=== PATIENT | male | born 1965 | race Caucasian/White ===

== ENCOUNTER 2016-11-07 16:47 | Emergency (ER) | payer SELFPAY ==
[~2016-11-07] VITALS: Ht 182.9 cm; Wt 104.0 kg
[~2016-11-07 16:47] MED LIST: CEPH-460 PO; CLIN1CAP5 PO; GABA600T PO; OXYC15TA PO; TEKT150T PO; TERA5CAP3 PO
[2016-11-07 16:56] VITALS: BP 127/62; PULSE 74; RESP 16; TEMP 98.7; O2SAT 97
--- NOTE | 2016-11-07 17:28 | PD ---
HPI Chief Complaint: laceration Time Seen by Provider: 17:20 Travel History International Travel<30 days: No Contact w/Intl Traveler<30days: No Traveled to known affect area: No History of Present Illness HPI 50-year-old male with history of multiple sclerosis presents for evaluation of a laceration to the left thumb. It was sustained prior to arrival when he fell while cleaning his pool pump. He reports that in order to keep from falling further he grabbed onto a metal hose clamp and the clamp was sharp and cut his finger. He now has pain at the site of the laceration. Pain is an aching pain which is worse with palpation. Denies any numbness, tingling, or range of motion limitation. His last tetanus vaccination was in 2013. No other complaints at this time. PFSH Past Medical History Arthritis: Yes Blood Disorders: No Cancer: No Cardiac Catheterization: Yes (no stents) Cardiovascular Problems: Yes (HYPOTENSIVE AT TIMES) High Cholesterol: Yes Chest Pain: Yes (08/05/10) Diminished Hearing: No Endocrine: No Gastrointestinal Disorders: Yes Genitourinary: Yes Immune Disorder: No Kidney Stones: Yes (2000) Musculoskeletal: Yes Neurologic: Yes (MS) Psychiatric: No Reproductive: No Respiratory: No Immunizations Current: Yes Migraines: Yes (WEEKLY) Past Surgical History Other Surgery: No Social History Alcohol Use: No Tobacco Use: No Substance Use: No (24 yr ago) Allergies-Medications (Allergen,Severity, Reaction): Coded Allergies: Sulfa (Sulfonamide Antibiotics) (Unverified Allergy, Severe, RASH, 09/22/16 ) Reported Meds & Prescriptions Reported Meds & Active Scripts Active Keflex (Cephalexin) 500 Mg Cap 500 Mg PO Q6H 10 Days Clindamycin (Clindamycin HCl) 150 Mg Cap 2 Tab PO Q6H 10 Days Reported Terazosin (Terazosin HCl) 5 Mg Cap 5 Mg PO HS Oxycodone (Oxycodone HCl) 15 Mg Tab 15 Mg PO Q6HR Gabapentin 600 Mg Tab 600 Mg PO TID Tekturna (Aliskiren) 150 Mg Tab 240 Mg PO BID Review of Systems Musculoskeletal: No: Limited ROM Skin: Positive Other (positive for laceration, pain) Physical Exam Narrative GENERAL: Well-developed well-nourished male in no acute distress SKIN: Warm and dry. 1.5 cm linear laceration to the volar aspect of the left thumb. CARDIOVASCULAR: Regular rate and rhythm. No murmur appreciated. RESPIRATORY: No accessory muscle use. Clear to auscultation. Breath sounds equal bilaterally. GASTROINTESTINAL: Abdomen soft, non-tender, nondistended. Hepatic and splenic margins not palpable. MUSCULOSKELETAL: No obvious deformities. Skin as noted above with no obvious bony disturbance. The patient maintains full flexion and extension against resistance at the left thumb MCP and PI joints. Distal sensation is preserved. Capillary refill is less than 2 seconds in the affected thumb. NEUROLOGICAL: Awake and alert. No obvious cranial nerve deficits. Motor grossly within normal limits. Normal speech. Data Data Last Documented VS Vital Signs Date Time Temp Pulse Resp B/P (MAP) Pulse Ox O2 Delivery O2 Flow Rate FiO2 11/07/16 16:56 98.7 74 16 127/62 (83) 97 Room Air Orders Orders Lidocaine 1% Inj (50 Ml) (Xylocaine 1% I (11/07/16 17:30) Support Splint (11/07/16 17:52) MDM Medical Decision Making Medical Screen Exam Complete: Yes Emergency Medical Condition: Yes Medical Record Reviewed: Yes Differential Diagnosis Finger laceration, flexor tendon injury, neurovascular injury, open fracture Narrative Course The patient presents with laceration to left thumb with no evidence of neurovascular, flexor tendon or bony involvement. The laceration was repaired with sutures, he verbally consented. He was discharged with a finger splint to minimize risk of wound dehiscence.. Procedures Procedure Narrative LACERATION LOCATION: Left thumb LENGTH: 1.5 cm NUMBER OF STITCHES/DAYANARA: 5 REPAIR: The area of the laceration was prepped with Betadine and sterilely draped. The laceration was infiltrated with 1% lidocaine digital block. The wound was copiously irrigated and explored without evidence of foreign body, tendon injury or neurovascular injury. The wound was closed using 5-0 PROLENE simple interrupted. This was a single layer repair. A sterile dressing was applied. The patient was advised to keep the dressing clean and dry. Patient tolerated the procedure well. Diagnosis Primary Impression: Thumb laceration Qualified Codes: S61.012A - Laceration without foreign body of left thumb without damage to nail, initial encounter Additional Instructions: Wash the wound gel with soap and water and apply antibiotic cream, clean bandages, splint daily. Minimize movement of left thumb. Return in 12-14 days for suture removal. Med/Other Pt SpecificInfo: Wound Care Disposition: 01 DISCHARGE HOME Condition: Stable Winston Nayak Nov 07, 2016 17:28
[2016-11-07] MEDS ORDERED: LIDOCAINE HCL 1% 50 ML VIAL INFIL ONE (17:30)
== END 2016-11-07 18:14 | disposition home or self-care (01) ==
LOC: PHED 16:47 → PHEFT 18:14
DX: S61.012A Laceration without foreign body of left thumb without damage to nail, initial encounter (principal); E78.00 Pure hypercholesterolemia, unspecified; G35 Multiple sclerosis; Z87.39 Personal history of other diseases of the musculoskeletal system and connective tissue; Z86.79 Personal history of other diseases of the circulatory system; Z87.19 Personal history of other diseases of the digestive system; Z87.448 Personal history of other diseases of urinary system; Z86.69 Personal history of other diseases of the nervous system and sense organs; W18.39XA Other fall on same level, initial encounter; W45.8XXA Other foreign body or object entering through skin, initial encounter
CPT/HCPCS: 12001

== ENCOUNTER 2017-01-13 16:12 | Inpatient (IN) | payer SELFPAY ==
[~2017-01-13] VITALS: Ht 180.3 cm; Wt 106.7 kg
[~2017-01-13 16:12] MED LIST changes: +CLIN150C14 PO; -CLIN1CAP5 PO
--- NOTE | 2017-01-13 16:24 | PD ---
HPI Chief Complaint: sob Time Seen by Provider: 16:18 Travel History International Travel<30 days: No Contact w/Intl Traveler<30days: No Traveled to known affect area: No History of Present Illness HPI patient had 3 days of cough, nonprod, runny nose which seemed to be improving...however patient is also experiencing weakness of ruth LE and UE similar to previous MS relapses. patient also c/o sob, chest pressure/ as well chart and rn notes reviewed no pcp, only sees dr dwyer (neurologist) all: sulfa pmhx: kidney stones, multiple sclerosis pshx: PFSH Past Medical History Arthritis: Yes Blood Disorders: No Cancer: No Cardiac Catheterization: Yes (no stents) Cardiovascular Problems: Yes (HYPOTENSIVE AT TIMES) High Cholesterol: Yes Chest Pain: Yes (08/05/10) Diminished Hearing: No Endocrine: No Gastrointestinal Disorders: No Genitourinary: Yes Immune Disorder: No Implanted Vascular Access Dvce: No Kidney Stones: Yes (2000) Musculoskeletal: Yes Neurologic: Yes (MS) Psychiatric: No Reproductive: No Respiratory: No Immunizations Current: Yes Migraines: Yes (WEEKLY) Past Surgical History Other Surgery: No Social History Alcohol Use: No Tobacco Use: No Substance Use: No (24 yr ago) Allergies-Medications (Allergen,Severity, Reaction): Coded Allergies: Sulfa (Sulfonamide Antibiotics) (Unverified Allergy, Severe, RASH, 01/13/17 ) Reported Meds & Prescriptions Reported Meds & Active Scripts Active Reported [terafludamide] Arzerra (Ofatumumab) 100 Mg/5 Ml Con 100 Mg IV Terazosin (Terazosin HCl) 5 Mg Cap 5 Mg PO HS Oxycodone (Oxycodone HCl) 15 Mg Tab 30 Mg PO Q6HR Review of Systems Except as stated in HPI: all other systems reviewed are Neg General / Constitutional: No: Fever Eyes: No: Visual changes HENT: No: Headaches Cardiovascular: Positive: Chest Pain or Discomfort Respiratory: Positive: Shortness of Breath Gastrointestinal: No: Abdominal Pain Genitourinary: No: Dysuria Musculoskeletal: No: Pain Skin: No Rash Neurologic: No: Weakness Psychiatric: No: Depression Endocrine: No: Polydipsia Hematologic/Lymphatic: No: Easy Bruising Physical Exam Narrative GENERAL: SKIN: Warm and dry. HEAD: Atraumatic. Normocephalic. EYES: Pupils equal and round. No scleral icterus. No injection or drainage. ENT: No nasal bleeding or discharge. Mucous membranes pink and moist. NECK: Trachea midline. No JVD. CARDIOVASCULAR: Regular rate and rhythm. RESPIRATORY: No accessory muscle use. ronchi to auscultation. Breath sounds equal bilaterally. GASTROINTESTINAL: Abdomen soft, non-tender, nondistended. Hepatic and splenic margins not palpable. MUSCULOSKELETAL: Extremities without clubbing, cyanosis, or edema. No obvious deformities. NEUROLOGICAL: Awake and alert. No obvious cranial nerve deficits. Motor grossly within normal limits. 3 out of 5 muscle strength in the arms and legs. Normal speech. PSYCHIATRIC: Appropriate mood and affect; insight and judgment normal. Data Data Last Documented VS Vital Signs Date Time Temp Pulse Resp B/P (MAP) Pulse Ox O2 Delivery O2 Flow Rate FiO2 01/13/17 16:50 97 Room Air 01/13/17 16:35 98.4 110 22 110/89 (96) Orders Orders Electrocardiogram (01/13/17 16:18) B-Type Natriuretic Peptide (01/13/17 16:18) Ckmb (Isoenzyme) Profile (01/13/17 16:18) Complete Blood Count With Diff (01/13/17 16:18) Comprehensive Metabolic Panel (01/13/17 16:18) Prothrombin Time / Inr (Pt) (01/13/17 16:18) Act Partial Throm Time (Ptt) (01/13/17 16:18) Troponin I (01/13/17 16:18) Lipase (01/13/17 16:18) Chest, Single Ap (01/13/17 16:18) Ecg Monitoring (01/13/17 16:18) Bilateral Bp Monitoring (01/13/17 16:18) Iv Access Insert/Monitor (01/13/17 16:18) Oximetry (01/13/17 16:18) Oxygen Administration (01/13/17 16:18) Sodium Chloride 0.9% Flush (Ns Flush) (01/13/17 16:30) Influenzae A/B Antigen (01/13/17 16:37) Methylprednisolone So Succ Inj (Solumedr (01/13/17 16:45) Hydromorphone Pf Inj (Dilaudid Pf Inj) (01/13/17 17:30) Admit To Inpatient (01/13/17 ) Inpatient Certification (01/13/17 ) Ondansetron Inj (Zofran Inj) (01/13/17 17:45) Admit Order (Ed Use Only) (01/13/17 17:44) Labs Laboratory Tests Test 01/13/17 16:45 White Blood Count 7.0 TH/MM3 Red Blood Count 4.47 MIL/MM3 Hemoglobin 13.1 GM/DL Hematocrit 39.5 % Mean Corpuscular Volume 88.3 FL Mean Corpuscular Hemoglobin 29.3 PG Mean Corpuscular Hemoglobin Concent 33.2 % Red Cell Distribution Width 12.1 % Platelet Count 240 TH/MM3 Mean Platelet Volume 7.4 FL Neutrophils (%) (Auto) 81.8 % Lymphocytes (%) (Auto) 6.9 % Monocytes (%) (Auto) 6.0 % Eosinophils (%) (Auto) 4.1 % Basophils (%) (Auto) 1.2 % Neutrophils # (Auto) 5.7 TH/MM3 Lymphocytes # (Auto) 0.5 TH/MM3 Monocytes # (Auto) 0.4 TH/MM3 Eosinophils # (Auto) 0.3 TH/MM3 Basophils # (Auto) 0.1 TH/MM3 CBC Comment DIFF FINAL Differential Comment Prothrombin Time 10.0 SEC Prothromb Time International Ratio 1.0 RATIO Activated Partial Thromboplast Time 28.5 SEC Blood Urea Nitrogen 13 MG/DL Creatinine 0.59 MG/DL Random Glucose 92 MG/DL Total Protein 6.4 GM/DL Albumin 3.2 GM/DL Calcium Level 7.3 MG/DL Alkaline Phosphatase 34 U/L Aspartate Amino Transf (AST/SGOT) 12 U/L Alanine Aminotransferase (ALT/SGPT) 25 U/L Total Bilirubin 0.4 MG/DL Sodium Level 142 MEQ/L Potassium Level 3.3 MEQ/L Chloride Level 109 MEQ/L Carbon Dioxide Level 24.4 MEQ/L Anion Gap 9 MEQ/L Estimat Glomerular Filtration Rate 144 ML/MIN Protein Corrected Calcium 7.7 MG/DL Total Creatine Kinase 90 U/L Troponin I LESS THAN 0.02 NG/ML B-Type Natriuretic Peptide 24 PG/ML Lipase 84 U/L [facility] Medical Decision Making Medical Screen Exam Complete: Yes Emergency Medical Condition: Yes Medical Record Reviewed: Yes Interpretation(s) sinus tach, 103, baseline motion artifact, normal intervals and no stemi pattern Differential Diagnosis PNA V UTI V ELECTROLYTE ABNL V MS EXACERBATION Narrative Course PT FOUND NOT TO HAVE PNA, UTI OR ELECTROLYTE ABNORMALITIES...SO PATIENT IS MOST LIKELY HAVE AN MS RELAPSE Diagnosis Primary Impression: Acute relapsing multiple sclerosis Admitting Information Admitting Physician Requests: Observation Scripts Methylprednisolone Sod Succinate Inj (Solu-Medrol Inj) 125 Mg/2 Ml Inj 1000 MG IV ONCE for multiple sclerosis, #1 VIAL 0 Refills Prov: Constantin Temple 01/15/17 Cholecalciferol (Vitamin D3) 5,000 Unit Cap 5000 UNITS PO DAILY for vitamin D deficiency for 30 Days, CAP Prov: Constantin Temple 01/15/17 Tito Hayes MD Jan 13, 2017 16:24
[2017-01-13] MEDS ORDERED: SODIUM CHLORIDE 0.9% FLUSH 10 ML FLUSH IVF PRN (16:30)
[2017-01-13 16:35] VITALS: BP 110/89; PULSE 110; RESP 22; TEMP 98.4; O2SAT 98
[2017-01-13 16:45] VITALS: O2SAT 97
[2017-01-13] MEDS ORDERED: methylPREDNISolone SOD SUCC 125 MG/2 ML VIAL IV PUSH ONE ×2 (16:45→20:00)
[2017-01-13 17:01] LABS: AUTOMATED NEUTROPHIL # 5.7 TH/MM3 (1.8-7.7); BASOPHIL # 0.1 TH/MM3 (0-0.2); BASOPHIL % 1.2 % (0.0-2.0); EOSINOPHIL # 0.3 TH/MM3 (0-0.4); EOSINOPHIL % 4.1 % (0.0-4.0); HEMATOCRIT 39.5 % (39.0-51.0); HEMO FLAGS DIFF FINAL; LYMPH % 6.9 % (9.0-44.0); LYMPHOCYTE # 0.5 TH/MM3 (1.0-4.8); MEAN CELL VOLUME 88.3 FL (80.0-100.0); MEAN CORPUSCULAR HEMOGLOBIN 29.3 PG (27.0-34.0); MEAN CORPUSCULAR HGB CONC 33.2 % (32.0-36.0); NEUT % 81.8 % (16.0-70.0); PLATELET COUNT 240 TH/MM3 (150-450); RED BLOOD COUNT 4.47 MIL/MM3 (4.50-5.90); RED CELL DISTRIBUTION WIDTH 12.1 % (11.6-17.2)
[2017-01-13 17:09] LABS: CHLORIDE 109 MEQ/L (98-107); POTASSIUM 3.3 MEQ/L (3.5-5.1); SODIUM (NA) 142 MEQ/L (136-145)
[2017-01-13 17:13] LABS: APTT (PATIENT) 28.5 SEC (24.3-30.1)
--- NOTE | 2017-01-13 17:17 | RADRPT ---
EXAM DATE/TIME: 01/13/2017 16:49 [place] COMPARISON: No previous studies available for comparison. INDICATIONS : Chest pressure and shortness of breath. MEDICAL HISTORY : Multiple sclerosis. SURGICAL HISTORY : None. ENCOUNTER: Initial ACUITY: 1 day PAIN SCORE: 7/10 LOCATION: chest FINDINGS: A single view of the chest demonstrates the lungs to be symmetrically, but under aerated without evid ence of mass, infiltrate or effusion. The cardiomediastinal contours are unremarkable. Osseous stru ctures are intact with some degenerative spurring of the dorsal spine. CONCLUSION: Hypoinflation with no acute cardiopulmonary process. Duane Tyler MD on January 13, 2017 at 17:15 Board Certified Radiologist. This report was verified electronically.
[2017-01-13 17:20] LABS: ALKALINE PHOSPHATASE 34 U/L (45-117); ALT (GPT) 25 U/L (12-78); ANION GAP 9 MEQ/L (5-15); AST (GOT) 12 U/L (15-37); BICARBONATE 24.4 MEQ/L (21.0-32.0); BLOOD UREA NITROGEN 13 MG/DL (7-18); CALCIUM-PROTEIN CORRECTED 7.7 MG/DL (8.5-10.1); GLOMERULAR FILTRATION RATE 144 ML/MIN (>89); TOTAL BILIRUBIN ADULT 0.4 MG/DL (0.2-1.0)
[2017-01-13 17:21] LABS: CREATINE KINASE 90 U/L (39-308)
[2017-01-13] MEDS ORDERED: [UNRECOGNIZED DRUG - CODE] IV (17:21)
[2017-01-13] MEDS ORDERED: [UNRECOGNIZED DRUG - OTHER] (17:21)
[2017-01-13] MEDS ORDERED: HYDROmorphone HCL PF 1 MG/ML VIAL IV PUSH ONE (17:30)
[2017-01-13] MEDS ORDERED: ONDANSETRON HCL 4 MG/2 ML VIAL IV PUSH ONE (17:45)
[2017-01-13 17:56] VITALS: BP_SYST 124; BP_SYST 134; BP_DIAS 73
[2017-01-13 18:03] VITALS: BP 124/73; PULSE 103; RESP 19; O2SAT 97
--- NOTE | 2017-01-13 19:23 | HHI.HP ---
[facility] No Primary Care Physician Admission Diagnosis MULTIP SCLEROSIS RELAPSE, Diagnoses: Chief Complaint: weakness Travel History International Travel<30 Days: No Contact w/Intl Traveler <30 Da: No Traveled to Known Affected Are: No History of Present Illness 51-year-old white male being admitted for possible multiple sclerosis exacerbation versus drug reaction resulting in generalized weakness and inability to walk. Patient states he was in his usual state of health until 2 days ago when he began feeling generalized weakness, namely he had difficulty sitting up in being able to get up from bed and being able to walk. He states that she went to his neurologist office today and got a experimental shot of medication for multiple sclerosis and sometime afterwards his weakness symptoms got even worse and then he decided to come to the emergency room. He had simultaneously viral URI-like symptoms including nasal congestion and coughing. Denies any fevers chills, nausea vomiting or headaches. Patient states the last time he was actually hospitalized for an MS relapse was a couple of years ago. In the emergency room he was given 125 mg of IV Solu-Medrol Review of Systems Except as stated in HPI: all other systems reviewed are Neg Past Family Social History Past Medical History Multiple sclerosis Past Surgical History None Allergies: Coded Allergies: Sulfa (Sulfonamide Antibiotics) (Unverified Allergy, Severe, RASH, 01/13/17 ) Family History Multiple sclerosis Social History Ex-smoker by many decades, denies alcohol or illicit drug use Physical Exam Vital Signs Vital Signs Date Time Temp Pulse Resp B/P (MAP) Pulse Ox O2 Delivery O2 Flow Rate FiO2 01/13/17 19:04 01/13/17 18:40 19 01/13/17 18:03 103 19 124/73 (90) 97 Room Air 01/13/17 17:56 134/73 (93) 124/73 (90) 01/13/17 16:50 97 Room Air 01/13/17 16:45 97 Room Air 01/13/17 16:45 97 Room Air 01/13/17 16:35 98.4 110 22 110/89 (96) 98 Physical Exam VS: Afebrile GENERAL: Well-nourished middle-aged white male, no acute distress SKIN: Warm and dry. EYES: Pupils equal and round. No scleral icterus. No injection or drainage. ENT: No nasal bleeding or discharge. Mucous membranes pink and moist. CARDIOVASCULAR: Regular rate and rhythm. no murmurs RESPIRATORY: No accessory muscle use. Clear to auscultation. Breath sounds equal bilaterally. GASTROINTESTINAL: Abdomen soft, non-tender, nondistended. Hepatic and splenic margins not palpable. Extremities: No clubbing, cyanosis, or edema. No obvious deformities. MUSCULOSKELETAL: Extremities without clubbing, cyanosis, or edema. No obvious deformities. 4/5 BL upper ext strength with 2/5 BL LE strength NEUROLOGICAL: Awake and alert. No obvious cranial nerve deficits. No facial droop nor slurred speech noted. Diminished patellar reflexes bilaterally PSYCHIATRIC: Appropriate mood and affect; insight and judgment normal. Laboratory Laboratory Tests Test 01/13/17 16:45 White Blood Count 7.0 Red Blood Count 4.47 Hemoglobin 13.1 Hematocrit 39.5 Mean Corpuscular Volume 88.3 Mean Corpuscular Hemoglobin 29.3 Mean Corpuscular Hemoglobin Concent 33.2 Red Cell Distribution Width 12.1 Platelet Count 240 Mean Platelet Volume 7.4 Neutrophils (%) (Auto) 81.8 Lymphocytes (%) (Auto) 6.9 Monocytes (%) (Auto) 6.0 Eosinophils (%) (Auto) 4.1 Basophils (%) (Auto) 1.2 Neutrophils # (Auto) 5.7 Lymphocytes # (Auto) 0.5 Monocytes # (Auto) 0.4 Eosinophils # (Auto) 0.3 Basophils # (Auto) 0.1 CBC Comment DIFF FINAL Differential Comment Prothrombin Time 10.0 Prothromb Time International Ratio 1.0 Activated Partial Thromboplast Time 28.5 Blood Urea Nitrogen 13 Creatinine 0.59 Random Glucose 92 Total Protein 6.4 Albumin 3.2 Calcium Level 7.3 Alkaline Phosphatase 34 Aspartate Amino Transf (AST/SGOT) 12 Alanine Aminotransferase (ALT/SGPT) 25 Total Bilirubin 0.4 Sodium Level 142 Potassium Level 3.3 Chloride Level 109 Carbon Dioxide Level 24.4 Anion Gap 9 Estimat Glomerular Filtration Rate 144 Protein Corrected Calcium 7.7 Total Creatine Kinase 90 Troponin I LESS THAN 0.02 B-Type Natriuretic Peptide 24 Lipase 84 Date/Time Source Procedure Growth Status 01/13/17 16:30 Nasal Washing Influenza Types A,B Antigen (CONRAD) - Final NEGATIVE FOR FLU A AND B ANTIGEN.... Complete Result Diagram: 01/13/17 1645 01/13/17 1645 Imaging Last Impressions Chest X-Ray 01/13/17 1618 Signed Impressions: Service Date/Time: Friday, January 13, 2017 16:49 - CONCLUSION: Hypoinflation with no acute cardiopulmonary process. MD Merritt Plascencia VTE Risk Assessment Caprini VTE Risk Assessment: Mod/High Risk (score >= 2) Caprini Risk Assessment Model Point Value = 1 Point Value = 2 Point Value = 3 Point Value = 5 Age 41-60 Minor surgery BMI > 25 kg/m2 Swollen legs Varicose veins or History of unexplained or recurrent spontaneous Oral contraceptives or hormone replacement Sepsis (< 1 month) Serious lung disease, including pneumonia (< 1 month) Abnormal pulmonary function Acute myocardial infarction Congestive heart failure (< 1 month) History of inflammatory bowel disease Medical patient at bed rest Age 61-74 Arthroscopic surgery Major open surgery (> 45 min) Laparoscopic surgery (> 45 min) Malignancy Confined to bed (> 72 hours) Immobilizing plaster cast Central venous access Age >= 75 History of VTE Family history of VTE Factor V Leiden Prothrombin [id number] Lupus anticoagulant Anticardiolipin antibodies Elevated serum homocysteine Heparin-induced thrombocytopenia Other congenital or acquired thrombophilia Stroke (< 1 month) Elective arthroplasty Hip, pelvis, or leg fracture Acute spinal cord injury (< 1 month) Prophylaxis Regimen Total Risk Factor Score Risk Level Prophylaxis Regimen 0-1 Low Early ambulation 2 Moderate Order ONE of the following: *Sequential Compression Device (SCD) *Heparin 5000 units SQ BID 3-4 Higher Order ONE of the following medications: *Heparin 5000 units SQ TID *Enoxaparin/Lovenox 40 mg SQ daily (WT < 150 kg, CrCl > 30 mL/min) *Enoxaparin/Lovenox 30 mg SQ daily (WT < 150 kg, CrCl > 10-29 mL/min) *Enoxaparin/Lovenox 30 mg SQ BID (WT < 150 kg, CrCl > 30 mL/min) AND/OR *Sequential Compression Device (SCD) 5 or more Highest Order ONE of the following medications: *Heparin 5000 units SQ TID (Preferred with Epidurals) *Enoxaparin/Lovenox 40 mg SQ daily (WT < 150 kg, CrCl > 30 mL/min) *Enoxaparin/Lovenox 30 mg SQ daily (WT < 150 kg, CrCl > 10-29 mL/min) *Enoxaparin/Lovenox 30 mg SQ BID (WT < 150 kg, CrCl > 30 mL/min) AND *Sequential Compression Device (SCD) Assessment and Plan Assessment and Plan Acute generalized weakness from possible MS exac vs drug s/e with resulting inability to walk safely - Case discussed with pt's neurologist, possible drug reaction versus multiple sclerosis exacerbation, we'll dose up to 250 mg of Solu-Medrol tonight (125 already given in ER) - Fall precautions and PT and OT URI symptoms - Independent review the chest x-ray is unremarkable Continue home pain med and terazosin hypocalcemia - unsure of cause, ordering PTH and Vit D 25 levels SCDs Physician Certification 2 Midnight Certification Type: Admission for Inpatient Services Order for Inpatient Services The services are ordered in accordance with Medicare regulations or non- Medicare payer requirements, as applicable. In the case of services not specified as inpatient-only, they are appropriately provided as inpatient services in accordance with the 2-midnight benchmark. Estimated LOS (days): 3 3 days is the estimated time the patient will need to remain in the hospital, assuming treatment plan goals are met and no additional complications. Post-Hospital Plan: Not yet determined Gerald Sanford MD Jan 13, 2017 19:23
[2017-01-13 20:00] VITALS: BP 140/77; PULSE 104; RESP 20; TEMP 99.2; O2SAT 96
[2017-01-13] MEDS ORDERED: POTASSIUM CHLORIDE 10 MEQ CONTROLLED RELEASE TAB PO ONE (20:00)
[2017-01-13] MEDS: TERAZOSIN HCL 5 MG CAP PO SCH (21:59)
[2017-01-14] VITALS: BP 113/55; PULSE 99; RESP 20; TEMP 96.9; O2SAT 95
[2017-01-14 06:31] LABS: BICARBONATE 25.4 MEQ/L (21.0-32.0); MAGNESIUM 2.1 MG/DL (1.5-2.5)
[2017-01-14 06:33] LABS: POTASSIUM 4.3 MEQ/L (3.5-5.1)
[2017-01-14] MEDS: methylPREDNISolone SO SUCC INJ 250 MG in DEXTROSE 5% IN WATER 100ML INJ 100 ML IV SCH ×8 (07:15→23:06)
--- NOTE | 2017-01-14 07:22 | MB ---
cc: CULLEN BAUTISTA DATE OF CONSULTATION 01/14/2017 REASON FOR CONSULTATION Multiple sclerosis HISTORY OF PRESENT ILLNESS Mr. Griffin is a 51-year-old man who has relapsing remitting multiple sclerosis for a number of years. The patient is currently receiving medication through an investigational study with a comparison of Aubagio versus a monoclonal antibody against B-cells. He has been on the study for seven months receiving monthly subcutaneous injections of either the monoclonal antibody or placebo and takes daily tablets of either placebo or Aubagio. This study is double blinded so it is not known what therapy the patient is taking. Nonetheless, he has been tolerating the therapy well and his MS has been stable. On Wednesday of this week, he received a subcutaneous injection of either the placebo or monoclonal antibody preceded by a dose of Solu-Medrol. He tolerated this well with no untoward side effects. However, the next day, which was yesterday morning, he awoke and noted profound weakness of the upper and lower extremities with difficulty rising or ambulating. The patient called my office and was instructed to proceed to the emergency room, given the degree of weakness. In the ER last night, I spoke with the physician and the patient was noted be markedly weak and admission to the hospital was recommended because of the weakness. I recommended one dose of IV Solu-Medrol 125 mg x2 which he did receive last night. This morning he does feel significantly improved, but still is weaker than baseline, difficult standing, difficulty ambulating. PAST MEDICAL HISTORY As noted above, there is a history of relapsing/remitting multiple sclerosis. ALLERGIES SULFA CURRENT MEDICATIONS 1. He received Solu-Medrol in the ER 125 mg x1. 2. He is on Oxycodone for the pain. 3. Hytrin NEUROLOGIC EXAMINATION VITAL SIGNS: Blood pressure 113/55, pulse is 99 regular, respiratory rate is 20, temperature 96.9 degrees. Higher cortical functions, he is alert and oriented x3. Speech is normal with normal fluency and normal comprehension. Cranial nerves are intact. The pupils 2 mm symmetric and reactive to light. There is no affect pupillary defect. The extraocular movements are normal with no I&O and no nystagmus. There is no facial asymmetry. On motor examination, he demonstrates weakness in the upper and lower extremities. The deltoids are 3/5, biceps 4/5, triceps 4/5, interossei 4/5. Iliopsoas strength 3/5 symmetric, quads 4/5, hamstring 4/5, tib anterior 4/5 symmetric. There is no fasciculations. He has no spasticity. Sensory exam intact. Reflexes are 2+ symmetric in the upper and lower extremities with equivocal Babinski's. Chest x-ray, no acute process is identified. LABORATORY DATA The white count is 7000, hemoglobin 13.1, hematocrit 39.5%, platelet count 240,000, PT 10.0, INR 1.0, APTT 28.5. Sodium is 136, potassium 4.3, initially potassium was low yesterday 3.3 which was corrected, chloride 103, CO2 is 25.4. The BUN is 14, creatinine 0.7, GFR is 118, glucose 150, calcium 8.4, AST 12, ALT 25, alkaline phosphatase 34, total bilirubin 0.4, lipase 84, calcium 7.3, protein corrected calcium 7.7. IMPRESSION Multiple sclerosis exacerbation. Given the fact that he did not have any immediate untoward reaction to the injection, I doubt that this is an adverse response to the injection, but more likely an exacerbation of his underlying multiple sclerosis. As noted above, the patient has been receiving the study injections for the past seven months with no side effects. RECOMMENDATIONS Would recommend continuation of Solu-Medrol 250 mg IV q6h for the next [id number] day depending on his response. We will also recommend physical therapy. Thank you for asking us to see Mr. Griffin in consultation. MD LARRY Chin/ALIS /6:57 AM /7:07 AM
[2017-01-14 08:00] VITALS: BP 109/60; PULSE 98; RESP 20; TEMP 97.9; O2SAT 93
[2017-01-14] MEDS ORDERED: PNEUMOCOCCAL POLYVALENT INJ 25 MCG/0.5 ML SYR IM ONE (09:00)
[2017-01-14] MEDS ORDERED: INFLUENZA VIRUS VACCINE (QUADRIVALENT) 0.5 ML SYR IM ONE (09:00)
[2017-01-14] MEDS: FAMOTIDINE 20 MG TAB PO SCH ×2 (09:00→21:02)
--- NOTE | 2017-01-14 11:39 | HHI.PR ---
Subjective Remarks Patient seen and examined today for follow-up on generalized weakness, multiple sclerosis exacerbation. Patient states that he does feel a little bit better after receiving Solu-Medrol yesterday. However he states that the pain medication he usually takes it is now causing him to have headaches it is requesting Dilaudid instead. Patient also states that she has upper respiratory symptoms with cough, congestion. Objective Vital Signs Date Time Temp Pulse Resp B/P (MAP) Pulse Ox O2 Delivery O2 Flow Rate FiO2 01/14/17 08:00 97.9 98 20 109/60 (76) 93 01/14/17 00:00 96.9 99 20 113/55 (74) 95 01/13/17 20:00 99.2 104 20 140/77 (98) 96 01/13/17 19:04 01/13/17 18:40 19 01/13/17 18:03 103 19 124/73 (90) 97 Room Air 01/13/17 17:56 134/73 (93) 124/73 (90) 01/13/17 16:50 97 Room Air 01/13/17 16:45 97 Room Air 01/13/17 16:45 97 Room Air 01/13/17 16:35 98.4 110 22 110/89 (96) 98 I/O 01/13/17 01/13/17 01/13/17 01/14/17 01/14/17 01/14/17 07:00 15:00 23:00 07:00 15:00 23:00 Intake Total 480 ml Balance 480 ml Intake Oral 480 ml # Voids 1 # Bowel Movements 0 Result Diagram: 01/13/17 1645 01/14/17 0515 Objective Remarks GENERAL: Well-developed, well-nourished, in no acute distress. alert and orientated HEENT: Head is normocephalic without any lesions or masses noted. Facial features are symmetric. Eyes: Extraocular muscles are intact. Conjunctivae were clear. NECK: Supple without any masses. Trachea midline no deviation. No JVD, CARDIAC: Regular rhythm, regular rate. S1/S2 are heard. No murmurs gallops or rubs. LUNGS: Clear to auscultation bilaterally. No wheeze, rhonchi or rales. No use of accessory muscles on inspiration or expiration. ABDOMEN: Soft, nontender. Nondistended. Bowel sounds heard in all 4 quadrants. No organomegaly or masses. Negative rebound, negative guarding EXTREMITIES: No edema, pulses are equal bilaterally. No cyanosis or clubbing NEUROLOGY: Mood and affect appear appropriate. Cranial nerves II through XII grossly intact. Muscle strength is 4/5 in upper and lower extremities bilaterally. A/P Assessment and Plan Acute multiple sclerosis exacerbation -Discussed with Dr. Zepeda, neurologist who indicates that patient would benefit from Solu-Medrol 1 g daily for 3 days. -Neurologist indicated that patient does improve after 1 day of IV Solu- Medrol then patient can be set up for outpatient infusion and okay to discharge -Fall precautions with PT and OT evaluations Upper respiratory symptoms, -Chest x-ray is unremarkable for any acute abnormality -Start cough medicine Hypocalcemia with associated vitamin D deficiency -PTH is normal -Vitamin D level is low, start replacement with vitamin D3 5000 units daily for at least 8 weeks, patient will need outpatient follow-up upon discharge Chronic pain -Home medications have been resumed -Patient states that home medications are causing him to have a headache and is requesting to have Dilaudid DVT prevention -Sequential compression devices Discharge Planning Discharge planning 24-72 hours depending on patient's response to treatment Constantin Temple Jan 14, 2017 11:39
[2017-01-14 12:00] VITALS: BP 97/55; PULSE 82; RESP 20; TEMP 96.5; O2SAT 95
[2017-01-14] MEDS: guaiFENesin/DEXTROMETHORPHAN 200 MG/20 MG/10 ML CUP PO PRN ×2 (12:30→21:02)
[2017-01-14] MEDS: CHOLECALCIFEROL (VIT D3) 5000 UNIT CAP PO SCH (12:31)
[2017-01-14] MEDS ORDERED: NAPROXEN 500 MG TAB PO ONE (15:15)
[2017-01-14 16:00] VITALS: BP 117/60; PULSE 84; RESP 20; TEMP 96.4; O2SAT 95
--- NOTE | 2017-01-14 16:29 | EKG ---
Date Performed: 01/13/2017 Time Performed: 16:18:28 PTAGE: 51 years EKG: SINUS TACHYCARDIA ABNORMAL RHYTHM ECG Since PREVIOUS TRACING , no significant change noted PREVIOUS TRACIN08/06/2010 03.11 DOCTOR: Mahesh Zamorano Interpretating Date/Time 01/14/2017 16:27:36
[2017-01-14] MEDS: HYDROmorphone HCL PF 1 MG/ML VIAL IV PUSH PRN ×2 (18:17→23:06)
[2017-01-14 20:00] VITALS: BP 122/74; PULSE 82; RESP 20; TEMP 96.1; O2SAT 94
[2017-01-14] MEDS: TERAZOSIN HCL 5 MG CAP PO SCH (23:04)
[2017-01-15] VITALS: BP 120/59; PULSE 74; RESP 20; TEMP 96.1; O2SAT 94
[2017-01-15] MEDS: methylPREDNISolone SO SUCC INJ 250 MG in DEXTROSE 5% IN WATER 100ML INJ 100 ML IV SCH ×2 (06:34)
[2017-01-15] MEDS: HYDROmorphone HCL PF 1 MG/ML VIAL IV PUSH PRN (06:34)
[2017-01-15 08:00] VITALS: BP 127/72; PULSE 80; TEMP 96; O2SAT 94
[2017-01-15] MEDS: FAMOTIDINE 20 MG TAB PO SCH (09:00)
[2017-01-15] MEDS: CHOLECALCIFEROL (VIT D3) 5000 UNIT CAP PO SCH (09:09)
--- NOTE | 2017-01-15 09:16 | HHI.PR ---
Subjective Remarks Patient seen and examined today for follow-up on generalized weakness, multiple sclerosis exacerbation. Patient states that he is doing much better. He is regaining strength nicely. He indicates that he is getting out of bed and walking with his cane to the bathroom. No new complaints overnight. Objective Vital Signs Date Time Temp Pulse Resp B/P (MAP) Pulse Ox O2 Delivery O2 Flow Rate FiO2 01/15/17 08:06 16 01/15/17 08:00 96.0 80 127/72 (90) 94 01/15/17 00:00 96.1 74 20 120/59 (79) 94 01/14/17 20:00 96.1 82 20 122/74 (90) 94 01/14/17 16:00 96.4 84 20 117/60 (79) 95 01/14/17 12:00 96.5 82 20 97/55 (69) 95 I/O 01/14/17 01/14/17 01/14/17 01/15/17 01/15/17 01/15/17 07:00 15:00 23:00 07:00 15:00 23:00 Intake Total 480 ml 720 ml 200 ml 340 ml Balance 480 ml 720 ml 200 ml 340 ml Intake Oral 480 ml 720 ml 240 ml IV Total 200 ml 100 ml # Voids 1 1 1 # Bowel Movements 0 Result Diagram: 01/13/17 1645 01/14/17 0515 Imaging Last Impressions Chest X-Ray 01/13/17 1618 Signed Impressions: Service Date/Time: Friday, January 13, 2017 16:49 - CONCLUSION: Hypoinflation with no acute cardiopulmonary process. Duane Tyler MD Objective Remarks GENERAL: Well-developed, well-nourished, in no acute distress. alert and orientated HEENT: Head is normocephalic without any lesions or masses noted. Facial features are symmetric. Eyes: Extraocular muscles are intact. Conjunctivae were clear. NECK: Supple without any masses. Trachea midline no deviation. No JVD, CARDIAC: Regular rhythm, regular rate. S1/S2 are heard. No murmurs gallops or rubs. LUNGS: Clear to auscultation bilaterally. No wheeze, rhonchi or rales. No use of accessory muscles on inspiration or expiration. ABDOMEN: Soft, nontender. Nondistended. Bowel sounds heard in all 4 quadrants. No organomegaly or masses. Negative rebound, negative guarding EXTREMITIES: No edema, pulses are equal bilaterally. No cyanosis or clubbing NEUROLOGY: Mood and affect appear appropriate. Cranial nerves II through XII grossly intact. Muscle strength is 4/5 in upper and lower extremities bilaterally. A/P Assessment and Plan Acute multiple sclerosis exacerbation -Discussed with Dr. Zepeda, neurologist who indicates that patient would benefit from Solu-Medrol 1 g daily for 3 days. -Neurologist indicated that patient does improve after 1 day of IV Solu- Medrol then patient can be set up for outpatient infusion and okay to discharge -Physical therapy evaluation, physical therapy reevaluated the patient indicates that patient is stable for discharge home -Discussed with Dr. Zepeda today who indicated patient can be discharged once outpatient IV therapy can be arranged with follow-up in his office on Wednesday Upper respiratory symptoms, -Chest x-ray is unremarkable for any acute abnormality -Continue cough medicine Hypocalcemia with associated vitamin D deficiency -PTH is normal -Vitamin D level is low, start replacement with vitamin D3 5000 units daily for at least 8 weeks, patient will need outpatient follow-up upon discharge Chronic pain -Home medications have been resumed -Patient states that home medications are causing him to have a headache and is requesting to have Dilaudid DVT prevention -Sequential compression devices Discharge Planning Discharge planning today once outpatient IV therapy can be arranged Activity: Ad compa. Diet: Healthy heart diet Medications per medication reconciliation Follow-up with primary medical doctor one week, neurologist in 2 weeks Constantin Temple Jan 15, 2017 09:16
--- NOTE | 2017-01-15 10:58 | HHI.DCPOC ---
Discharge Care Plan Diagnosis: (1) Multiple sclerosis Goals to Promote Your Health * To prevent worsening of your condition and complications * To maintain your health at the optimal level Directions to Meet Your Goals Take your medications as prescribed Follow your dietary instruction Follow activity as directed Keep your appointments as scheduled Take your immunizations and boosters as scheduled If your symptoms worsen call your PCP, if no PCP go to Urgent Care Center or Emergency Room Smoking is Dangerous to Your Health. Avoid second hand smoke Call the 24-hour hour crisis hotline for domestic abuse at Constantin Temple Jan 15, 2017 10:58
--- NOTE | 2017-01-15 11:02 | HHI.FF ---
Infusion Therapy Location of Infusion Therapy: Ambulatory Infusion Therapy Order Patient Information Appointment Date: Jan 16, 2017 Patient Weight 106.7 kg Diagnosis: (1) Multiple sclerosis Coded Allergies: Sulfa (Sulfonamide Antibiotics) (Unverified Allergy, Severe, RASH, 01/13/17 ) Additional Information Additional Medications Solu-Medrol 1 g IV single infusion Venous access: Peripheral Additional Instructions [x] Peripheral flush and dressing changes per protocol [] Implanted port and central business line manager: * Implanted port: 10 ml Normal Saline followed by 5 ml Heparin 100 units/ml Heparin flush after each use and monthly to maintain. [] May leave port accessed during therapy. [] May leave peripheral site accessed for duration of therapy. [x] If patient has SOB or respiratory distress, check oxygen saturation. If less than 90% or clinical signs of respiratory distress, administer oxygen at 2 L/min. via nasal cannula and notify physician. [x] Anaphylaxis/Reaction orders: * Stop infusion. * Keep IV line open with saline flush. * Notify physician. * Monitor vital signs every 15 minutes until symptoms resolve. * Check Oxygen saturation; Oxygen at 2 L/min. via nasal cannula if less than 90% or clinical signs of respiratory distress. * Administer diphenhydramine (Benadryl) 25 mg IV STAT, (unless patient has received as pre-med). May repeat once, if necessary. * Solu-Cortef 250 mg IVP over 30-60 seconds, use 100 mg vials for each dissolution. * Epinephrine (1mg/1 ml) 0.3 mg subcutaneously or IVP now with any signs of respiratory distress. * Check with physician for new additional pre-med orders if patient is re- challenged or re-treated. [x] May remove peripheral IV when treatment complete [x] If the patient is admitted to the hospital, the ED, or transferred via [facility] , complete transfer form including medication reconciliation order sheet. Laboratory Tests Additional Information Please remove peripheral IV after Solu-Medrol given Constantin Temple Jan 15, 2017 11:02
[2017-01-15] MEDS ORDERED: CHOL5000 PO (11:26)
[2017-01-15] MEDS ORDERED: SOLU125I IV (11:29)
[2017-01-15] MEDS ORDERED: METHYLPREDNISOLONE SO SUCC IV ONE ×2 (12:00)
[2017-01-15] MEDS ORDERED: WATER IV ONE ×2 (12:00)
[2017-01-15] MEDS ORDERED: DEXTROSE 5% IV ONE ×2 (12:00)
[2017-01-15 13:00] VITALS: BP 123/84; PULSE 79; RESP 16; TEMP 96.3; O2SAT 94
== END 2017-01-15 14:19 | disposition home or self-care (01) | DRG 60 ==
LOC: PHED 16:12 → PHEDA 17:46 → PH3A 19:02
PROVIDERS: ADMIT Hospitalist; ATTEND Hospitalist
DX: G35 Multiple sclerosis (principal); E55.9 Vitamin D deficiency, unspecified; M19.90 Unspecified osteoarthritis, unspecified site; J06.9 Acute upper respiratory infection, unspecified; G44.40 Drug-induced headache, not elsewhere classified, not intractable; T39.95XA Adverse effect of unspecified nonopioid analgesic, antipyretic and antirheumatic, initial encounter; Z87.891 Personal history of nicotine dependence; Z88.2 Allergy status to sulfonamides
CPT/HCPCS: 71010; 80048; 80053; 82306; 82550; 83690; 83735; 83880; 83970; 84484; 85025; 85610; 85730; 87804; 93005; 96374; J1170; J2405; J2930; J7060

== ENCOUNTER 2017-11-02 11:51 | Observation (INO) ==
[2017-11-02 12:28] LABS: Baso # (Auto) 0.2 th/mm3 (0.0-0.2); Eos # (Auto) 0.4 th/mm3 (0.0-0.4); Eos % (Auto) 6.9 % (0.0-4.0); Hematocrit 37.8 % (39.0-51.0); Hemoglobin 12.6 gm/dL (13.0-17.0); Lymph # (Auto) 1.6 th/mm3 (1.0-4.8); Lymph % (Auto) 28.2 % (9.0-44.0); Mean Corpuscular HGB Conc 33.4 % (32.0-36.0); Mean Corpuscular Hemoglobin 29.6 pg (27.0-34.0); Mean Corpuscular Volume 88.6 fL (80.0-100.0); Mean Platelet Volume 8.3 fL (7.0-11.0); Mono # (Auto) 0.4 th/mm3 (0.0-0.9); Mono % (Auto) 7.5 % (0.0-8.0); Neut # (Auto) 3.2 th/mm3 (1.8-7.7); Neut % (Auto) 53.4 % (16.0-70.0); Platelet Count 258 th/mm3 (150-450); Red Blood Count 4.27 mil/mm3 (4.50-5.90); Red Cell Distribution Width 12.6 % (11.6-17.2); White Blood Count 5.8 th/mm3 (4.0-11.0)
--- NOTE | 2017-11-02 12:43 | XR ---
EXAM DATE: 11/02/2017 12:02 PM EDT AGE/SEX: 51 years / Male INDICATIONS: Pain and numbness in left arm and left side of chest. CLINICAL DATA: This is the patient's initial encounter. Patient reports that signs and symptoms have been present for 1 day and indicates a pain score of 2/10. MEDICAL/SURGICAL HISTORY: Multiple sclerosis. None. COMPARISON: [facility], CHEST SINGLE AP, 01/13/2017. . FINDINGS: A single AP view of the chest demonstrates the lungs to be symmetrically aerated without evidence of mass, infiltrate or effusion. The cardiomediastinal contours are unremarkable. Osseous structures a re intact. CONCLUSION: No active disease. Electronically signed by: David Olivares MD 11/02/2017 12:42 PM EDT
--- NOTE | 2017-11-02 12:52 | ED ---
HPI General Chief Complaint: Chest Pain Stated Complaint: chest tightness/ left arm numbness Time Seen by Provider: 11/02/17 12:02 Source: patient Mode of arrival: ambulatory Limitations: no limitations History of Present Illness HPI narrative: Patient is a 51-year-old male with history of MS who presents to the emergency room via private vehicle for evaluation of chest pain. Patient reports that he was at work around 9:30 AM this morning, reports that he did have numbness and pain to his left arm which radiated up into his left shoulder and then into his left chest. Patient reports that the pain has been constant, nothing makes it better or worse. Reports that chest feels tight, he did feel nauseous but had no episodes of vomiting. Reports that he did feel diaphoretic with this chest pain with no shortness of breath. Patient reports that he has extensive history of multiple sclerosis which Dr. Zepeda has been been treating over 10 years. Patient reports no history of hypertension or hyperlipidemia or diabetes, no history of ACS. MD complaint: chest pain Related Data Home Medications Medication Instructions Recorded Confirmed Percocet 10 mg PO QID 11/02/17 11/02/17 oxycodone 30 mg PO Q6H 11/02/17 11/02/17 terazosin PO HS 11/02/17 Allergies Allergy/AdvReac Type Severity Reaction Status Date / Time Sulfa (Sulfonamide Allergy Severe RASH Verified 11/02/17 12:00 Antibiotics) Review of Systems ROS: all other systems reviewed are negative [facility] Medical History Medical History History of kidney stones (Acute) Multiple sclerosis (Acute) Surgical History Surgical History No history of previous surgery (Acute) Social History Social History Substance History: No History of Abuse Second Hand Smoke Exposure: No Smoking Status: Never smoker How Often Do You Have a Drink Containing Alcohol: Never Recent Travel in [facility] within the Last 8 Weeks: No Recent Out of Country Travel within the Last 8 Weeks: No Immunization History Tetanus Immunization: <5 Years Hx Influenza Vaccine This Season: Yes Exam Narrative Exam Narrative: GENERAL: Mild distress SKIN: Focused skin assessment warm/dry. HEAD: Atraumatic. Normocephalic. EYES: Pupils equal and round. No scleral icterus. No injection or drainage. ENT: No nasal bleeding or discharge. Mucous membranes pink and moist. NECK: Trachea midline. No JVD. CARDIOVASCULAR: Regular rate and rhythm. No murmur appreciated. RESPIRATORY: No accessory muscle use. Clear to auscultation. Breath sounds equal bilaterally. GASTROINTESTINAL: Abdomen soft, non-tender, nondistended. Hepatic and splenic margins not palpable. MUSCULOSKELETAL: No obvious deformities. No clubbing. No cyanosis. No edema. NEUROLOGICAL: Awake and alert. No obvious cranial nerve deficits. Patient with weakness to the left upper as well as left lower extremity which patient reports this is baseline from his multiple sclerosis. Normal speech. PSYCHIATRIC: Appropriate mood and affect; insight and judgment normal. Course Initial Documented Vital Signs Temperature 98.1 F 11/02/17 11:59 Pulse Rate 93 H 11/02/17 11:59 Respiratory Rate 18 11/02/17 11:59 Blood Pressure 142/64 H 11/02/17 11:59 Pulse Oximetry 98 11/02/17 11:59 Last Documented Vital Signs Temperature 98.1 F 11/02/17 11:59 Pulse Rate 103 H 11/02/17 13:05 Respiratory Rate 16 11/02/17 13:05 Blood Pressure 114/67 11/02/17 13:05 Pulse Oximetry 98 11/02/17 13:05 Medical Decision Making MDM Narrative Medical decision making narrative: During the course of the patients emergency department visit, the patients history, examination, and differential diagnosis were reviewed with the patient. The patient was placed on a case monitor with oximetry and frequent blood pressure monitoring. The patient had an IV access obtained and blood work sent for analysis. The patient was initially provided aspirin as well as SL nitro . The patients laboratory studies were reviewed and remarkable for wbc 5.8, hgb 12.6, hcg 37.8, platelets 258 sodium 140, chloride 106, potassium 3.8, chloride 27, bun 9, creatine 0.78, glucose 101 inr 1.0 trop less than 0.02 chest xray: with no active disease ct of head: unremarkable exam Plan to admit patient to the chest pain unit at this time for serial trop and cardiac monitoring Patient with relief of chest pain after 1 sl nitro Patient accepted by Dr. Garza for chest pain obs, he was made NPO - patient has NOT had any coffee today - he can have nuclear stress test today Medical Screen Exam Complete: Yes Emergency Medical Condition: Yes Differential Diagnosis Differential Diagnosis: ACS, arrythmia, cva, tia, MS exacerbation, electrolyte abnormality Medical Records Medical records reviewed: Yes I reviewed the patient's medical records. Lab Data Lab results reviewed: Yes I reviewed the patient's lab results. Result diagrams: 11/02/17 12:20 11/02/17 12:57 Lab Results 11/02/17 11/02/17 11/02/17 Range/Units 12:20 12:57 12:57 CBC w Diff Auto diff final WBC 5.8 (4.0-11.0) th/mm3 RBC 4.27 L (4.50-5.90) mil/mm3 Hgb 12.6 L (13.0-17.0) gm/dL Hct 37.8 L (39.0-51.0) % MCV 88.6 (80.0-100.0) fL MCH 29.6 (27.0-34.0) pg MCHC 33.4 (32.0-36.0) % RDW 12.6 (11.6-17.2) % Plt Count 258 (150-450) th/mm3 MPV 8.3 (7.0-11.0) fL Neut % (Auto) 53.4 (16.0-70.0) % Lymph % (Auto) 28.2 (9.0-44.0) % [place] % (Auto) 7.5 (0.0-8.0) % Eos % (Auto) 6.9 H (0.0-4.0) % Baso % (Auto) 4.0 H (0.0-2.0) % Neut # (Auto) 3.2 (1.8-7.7) th/mm3 Lymph # (Auto) 1.6 (1.0-4.8) th/mm3 [place] # (Auto) 0.4 (0.0-0.9) th/mm3 Eos # (Auto) 0.4 (0.0-0.4) th/mm3 Baso # (Auto) 0.2 (0.0-0.2) th/mm3 WBC Differential . Differential Comment . PT 10.0 (9.8-11.6) sec INR 1.0 Ratio APTT 26.9 (24.3-30.1) sec Sodium 140 (136-145) meq/L Potassium 3.8 (3.5-5.1) meq/L Chloride 106 (98-107) meq/L Carbon Dioxide 27.0 (21.0-32.0) meq/L Anion Gap 7 (5-15) meq/L BUN 9 (7-18) mg/dL Creatinine 0.78 (0.60-1.30) mg/dL Estimated GFR Greater than 89 (>89) mL/min Random Glucose 101 (74-106) mg/dL Calcium 8.1 L (8.5-10.1) mg/dL Total Bilirubin 0.4 (0.2-1.0) mg/dL AST 11 L (15-37) U/L ALT 22 (12-78) U/L Alkaline Phosphatase 38 L (45-117) U/L Total Creatine Kinase 77 (39-308) U/L Troponin I Less than 0.02 L (0.02-0.05) ng/mL Total Protein 6.6 (6.4-8.2) g/dL Albumin 3.7 (3.4-5.0) g/dL Lipase 77 (73-393) U/L Imaging Data Radiologist's impression: Chest X-Ray 11/02/17 12:02 CONCLUSION: No active disease. Head CT 11/02/17 12:24 CONCLUSION: 1. Unremarkable examination. . ECG Data EKG Prior to Arrival: No Attestation: I personally reviewed and interpreted this ECG as follows: Interpretation: EKG at 1156: NSR at 91bpm, qt/qtc: 367/415, no acute st or t wave changes, non acute ekg Discharge Plan Discharge Disposition Patient Disposition: 30 Still Patient Discharge Condition Condition: Fair Discharge Details Diagnosis: Chest pain Physicians Team ED Provider: Sussy Contreras Primary Care Provider: UNKNOWN, Rxs /Orders / Referrals /Forms Prescriptions: No Action Percocet 10 mg PO QID RF: 0 oxycodone 30 mg PO Q6H RF: 0 terazosin PO HS RF: 0 Discharge Instructions Patient Printed Instructions: Chest Pain (ED) Status ED Status: With Doctor
[2017-11-02 13:29] LABS: Chloride 106 meq/L (98-107); Potassium 3.8 meq/L (3.5-5.1); Sodium 140 meq/L (136-145)
[2017-11-02 13:33] LABS: Activated Partial Thrombo Time 26.9 sec (24.3-30.1)
[2017-11-02 13:36] LABS: Calcium 8.1 mg/dL (8.5-10.1)
[2017-11-02 13:37] LABS: Albumin 3.7 g/dL (3.4-5.0); Anion Gap 7 meq/L (5-15); Blood Urea Nitrogen 9 mg/dL (7-18); Glucose,Random 101 mg/dL (74-106); Lipase 77 U/L (73-393)
[2017-11-02 13:40] LABS: Alanine Aminotransferase 22 U/L (12-78); Aspartate Aminotransferase 11 U/L (15-37); Glomerular Filtration Rate Greater Than 89 mL/min (>89)
[2017-11-02 13:41] LABS: Total Protein 6.6 g/dL (6.4-8.2)
[2017-11-02 13:43] LABS: Alkaline Phosphatase 38 U/L (45-117)
[2017-11-02 13:47] LABS: Creatine Kinase 77 U/L (39-308)
--- NOTE | 2017-11-02 14:25 | CT ---
EXAM DATE: 11/02/2017 2:00 PM EDT AGE/SEX: 51 years / Male INDICATIONS: Left upper extremity numbness. CLINICAL DATA: This is the patient's initial encounter. Patient reports that signs and symptoms have been present for 1 day and indicates a pain score of 0/10. MEDICAL/SURGICAL HISTORY: Renal calculi. Multiple sclerosis. None. RADIATION DOSE: 58.49 CTDI (mGy) COMPARISON: No prior exams available for comparison. TECHNIQUE: CT of the head without contrast. Using automated exposure control and adjustment of the mA and/or kV according to patient size, radiation dose was kept as low as reasonably achievable to ob tain optimal diagnostic quality images. DICOM format image data is available electronically for revi ew and comparison. FINDINGS: Cerebrum: The ventricles are normal for age. No evidence of midline shift, mass lesion, hemorrhage or acute infarction. No extraaxial fluid collections are seen. Posterior Fossa: The cerebellum and brainstem are intact. The 4th ventricle is midline. The cerebe llopontine angle is unremarkable. Extracranial: The visualized portion of the orbits is intact. Skull: The calvaria is intact. No evidence of skull fracture. CONCLUSION: 1. Unremarkable examination. . Electronically signed by: Aj Jose MD 11/02/2017 2:24 PM EDT
[2017-11-02] MEDS ORDERED: Acetaminophen 500 MG Tablet PO PRN (14:49)
[2017-11-02] MEDS ORDERED: Morphine Sulfate Inj 2 MG/ML Vial IV.PUSH PRN (15:00)
--- NOTE | 2017-11-02 16:17 | P.HP ---
History of Present Illness Primary Care Physician: UNKNOWN Chief Complaint: chest pain History of Present Illness: This is a 51-year-old male with a history of multiple sclerosis. Patient was at work when he developed nonexertional severe retrosternal sharp pain radiating to his left shoulder associated with numbness of the left upper extremity, nausea and diaphoresis. He has chronic pain and numbness involving both hands and feet. Denies fever, chills, cough, shortness of breath and dizziness. Remote cardiac catheterization negative for CAD. ER physician recommended further evaluation in the chest pain center. Initial cardiac enzymes unremarkable. EKG independently reviewed by me with sinus rhythm with no acute ST-T changes. Chest x-ray independently reviewed by me with no acute cardiopulmonary disease. All other systems reviewed negative Review of Systems All other systems reviewed negative except as stated in HPI [facility] - History History Provided By: Patient - Medical History Medical History: Medical History (Last Reviewed 11/02/17 @ 16:12 by Akhil Garza MD) History of kidney stones Multiple sclerosis - Surgical History Surgical History: Surgical History (Last Reviewed 11/02/17 @ 16:12 by Akhil Garza MD) No history of previous surgery - Family History Family History: Family History (Last Updated 11/02/17 @ 16:12 by Akhil Garza MD) Other Family history of cancer - Tobacco History Second Hand Smoke Exposure: No Tobacco Use In Past 30 Days: No Smoking Status: Never smoker - Alcohol History How Often Do You Have a Drink Containing Alcohol: Never - Substance Use History Substance History: No History of Abuse - Travel History Recent Travel in the [place] Within the Last 8 Weeks: No Recent Travel Out of the Country Within the Last 8 Weeks: No - Immunization History Tetanus Immunization: <5 Years Hx Influenza Vaccine This Season: Yes Medications and Allergies Active Medications: Active Medications Acetaminophen (Tylenol) 500 mg PO Q4H PRN PRN Reason: HEADACHE Hydrocodone Bitart/Acetaminophen (Smith 7.5/325) 1 tab PO Q4H PRN PRN Reason: PAIN SCALE 1 TO 7 Aspirin (Aspirin) 325 mg PO DAILY JONATHAN Morphine Sulfate (Morphine Inj) 2 mg IV.PUSH Q4H PRN PRN Reason: PAIN 8-10 Nitroglycerin (Nitrostat Sl) 0.4 mg SL Q5M PRN PRN Reason: CHEST PAIN Ondansetron HCl (Zofran Inj) 4 mg IV.PUSH Q6H PRN PRN Reason: NAUSEA Sodium Chloride (Ns Flush) 2 ml IV.FLUSH BID JONATHAN Sodium Chloride (Ns Flush) 2 ml IV.FLUSH PRN PRN PRN Reason: FLUSH AFTER USING IV ACCESS Allergies Allergy/AdvReac Type Severity Reaction Status Date / Time Sulfa (Sulfonamide Allergy Severe RASH Verified 11/02/17 12:00 Antibiotics) Home Medications Medication Instructions Recorded Confirmed Type Percocet 10 mg PO QID 11/02/17 11/02/17 History oxycodone 30 mg PO Q6H 11/02/17 11/02/17 History terazosin PO HS 11/02/17 History Exam Vital signs: Vital Signs 11/02/17 11:59 11/02/17 12:05 11/02/17 13:05 Temperature 98.1 F Pulse Rate 93 H 93 H 103 H Respiratory Rate 18 18 16 Blood Pressure 142/64 H 142/64 H 114/67 Pulse Oximetry 98 98 98 11/02/17 13:10 11/02/17 13:15 11/02/17 14:40 Temperature Pulse Rate 92 H 72 Respiratory Rate 16 18 16 Blood Pressure 101/61 96/59 L Pulse Oximetry 98 11/02/17 15:54 Temperature Pulse Rate 89 Respiratory Rate 16 Blood Pressure 116/81 Pulse Oximetry 97 Intake & Output 11/01/17 11/02/17 11/02/17 18:59 06:59 18:59 Weight 107 kg Narrative: GENERAL: Well-developed, obese in no distress SKIN: Warm and dry. HEAD: Atraumatic. Normocephalic. EYES: Pupils equal and round. No scleral icterus. No injection or drainage. ENT: No nasal bleeding or discharge. Mucous membranes pink and moist. NECK: Trachea midline. No JVD. CARDIOVASCULAR: Regular rate and rhythm. RESPIRATORY: No accessory muscle use. Clear to auscultation. Breath sounds equal bilaterally. GASTROINTESTINAL: Abdomen soft, non-tender, nondistended. MUSCULOSKELETAL: Extremities without clubbing, cyanosis, or edema. No obvious deformities. NEUROLOGICAL: Awake and alert. No obvious cranial nerve deficits. Moving all extremities with slight weakness in the left upper and left lower extremities which is baseline. Normal speech. PSYCHIATRIC: Appropriate mood and affect; insight and judgment normal. Results - Labs CBC & Chem 7: 11/02/17 12:20 11/02/17 12:57 Labs: Laboratory Results - last 24 hr 11/02/17 11/02/17 11/02/17 12:20 12:57 12:57 CBC w Diff Auto diff final WBC 5.8 RBC 4.27 L Hgb 12.6 L Hct 37.8 L MCV 88.6 MCH 29.6 MCHC 33.4 RDW 12.6 Plt Count 258 MPV 8.3 Neut % (Auto) 53.4 Lymph % (Auto) 28.2 [place] % (Auto) 7.5 Eos % (Auto) 6.9 H Baso % (Auto) 4.0 H Neut # (Auto) 3.2 Lymph # (Auto) 1.6 [place] # (Auto) 0.4 Eos # (Auto) 0.4 Baso # (Auto) 0.2 WBC Differential . Differential Comment . PT 10.0 INR 1.0 APTT 26.9 Sodium 140 Potassium 3.8 Chloride 106 Carbon Dioxide 27.0 Anion Gap 7 BUN 9 Creatinine 0.78 Estimated GFR Greater than 89 Random Glucose 101 Calcium 8.1 L Total Bilirubin 0.4 AST 11 L ALT 22 Alkaline Phosphatase 38 L Total Creatine Kinase 77 Troponin I Less than 0.02 L Total Protein 6.6 Albumin 3.7 Lipase 77 - Imaging Impressions Chest X-Ray 11/02/17 12:02 CONCLUSION: No active disease. Head CT 11/02/17 12:24 CONCLUSION: 1. Unremarkable examination. . Caprini VTE Risk Assessment Caprini VTE Risk Assessment: Moderate/High Risk (score >= 2) Caprini Risk Assessment Model: Point Value = 1 Point Value = 2 Point Value = 3 Point Value = 5 Age 41-60 Minor surgery BMI > 25 kg/m2 Swollen legs Varicose veins or History of unexplained or recurrent spontaneous Oral contraceptives or hormone replacement Sepsis (< 1 month) Serious lung disease, including pneumonia (< 1 month) Abnormal pulmonary function Acute myocardial infarction Congestive heart failure (< 1 month) History of inflammatory bowel disease Medical patient at bed rest Age 61-74 Arthroscopic surgery Major open surgery (> 45 min) Laparoscopic surgery (> 45 min) Malignancy Confined to bed (> 72 hours) Immobilizing plaster cast Central venous access Age >= 75 History of VTE Family history of VTE Factor V Leiden Prothrombin [id number] Lupus anticoagulant Anticardiolipin antibodies Elevated serum homocysteine Heparin-induced thrombocytopenia Other congenital or acquired thrombophilia Stroke (< 1 month) Elective arthroplasty Hip, pelvis, or leg fracture Acute spinal cord injury (< 1 month) Prophylaxis Regimen: Total Risk Factor Score Risk Level Prophylaxis Regimen 0-1 Low Early ambulation 2 Moderate Order ONE of the following: *Sequential Compression Device (SCD) *Heparin 5000 units SQ BID 3-4 Higher Order ONE of the following medications: *Heparin 5000 units SQ TID *Enoxaparin/Lovenox 40 mg SQ daily (WT < 150 kg, CrCl > 30 mL/min) *Enoxaparin/Lovenox 30 mg SQ daily (WT < 150 kg, CrCl > 10-29 mL/min) *Enoxaparin/Lovenox 30 mg SQ BID (WT < 150 kg, CrCl > 30 mL/min) AND/OR *Sequential Compression Device (SCD) 5 or more Highest Order ONE of the following medications: *Heparin 5000 units SQ TID (Preferred with Epidurals) *Enoxaparin/Lovenox 40 mg SQ daily (WT < 150 kg, CrCl > 30 mL/min) *Enoxaparin/Lovenox 30 mg SQ daily (WT < 150 kg, CrCl > 10-29 mL/min) *Enoxaparin/Lovenox 30 mg SQ BID (WT < 150 kg, CrCl > 30 mL/min) AND *Sequential Compression Device (SCD) Assessment and Plan - Plan 51-year-old male presenting with chest pain radiating to his shoulder associated with numbness of the left upper extremity, nausea and diaphoresis. Chest pain. Trend cardiac enzymes. Continue aspirin and sublingual nitroglycerin. If patient rules out for [place], will obtain Lexiscan. Multiple sclerosis with chronic pain. Continue home medications scheduled oxycodone 15 mg every 6 hours(0600,1200,1800,2400) and Percocet 10 mg 4 times a day(0300,0900,1500,2100). Eforcse queried DVT proph with SCD and SQ heparin
[2017-11-02 16:46] LABS: Creatine Kinase 75 U/L (39-308)
[2017-11-02 19:24] LABS: Creatine Kinase 80 U/L (39-308)
[2017-11-02 20:13] VITALS: RESP 20
[2017-11-02] MEDS: oxyCODONE/Acetaminophen 10/325 Tablet PO SCH (20:32)
[2017-11-02] MEDS: Heparin - SQ 10,000 UNITS/ML Vial SQ SCH (21:25)
--- NOTE | 2017-11-02 22:27 | ECG ---
Date Performed: 11/02/2017 Time Performed: 18:24:55 PTAGE: 51 years EKG: Sinus rhythm NORMAL ECG PREVIOUS TRACING : 11/02/2017 16.04 Since the previous tracing, no significant change noted DOCTOR: Celia Stuart Interpretating Date/Time 11/02/2017 22:26:41
--- NOTE | 2017-11-02 22:34 | ECG ---
Date Performed: 11/02/2017 Time Performed: 16:04:32 PTAGE: 51 years EKG: Sinus rhythm NORMAL ECG PREVIOUS TRACING : 11/02/2017 11.56 Since the previous tracing, no significant change noted DOCTOR: Celia Stuart Interpretating Date/Time 11/02/2017 22:33:45
--- NOTE | 2017-11-02 22:53 | ECG ---
Date Performed: 11/02/2017 Time Performed: 11:56:04 PTAGE: 51 years EKG: Sinus rhythm NORMAL ECG PREVIOUS TRACING : 01/13/2017 16.18 Since the previous tracing, no significant change noted DOCTOR: Celia Stuart Interpretating Date/Time 11/02/2017 22:52:16
[2017-11-03 01:23] VITALS: O2SAT 97
[2017-11-03] MEDS: oxyCODONE/Acetaminophen 10/325 Tablet PO SCH ×2 (02:38→08:37)
[2017-11-03 08:10] VITALS: BP 123/75; PULSE 69; TEMP 97.5
[2017-11-03] MEDS: Heparin - SQ 10,000 UNITS/ML Vial SQ SCH ×2 (08:36→08:39)
--- NOTE | 2017-11-03 08:47 | P.PN ---
Subjective Interval history: 51-year-old male who is seen and examined today for follow-up on chest pain, left arm numbness. I reviewed the laboratory studies and EKGs with the patient and notified him of no cardiac injury at this time. Patient does not want to pursue any further testing at this time. He states that he had a stress test done 10 years ago and it was false positive in which he underwent cardiac catheterization for what he considered no apparent reason. Patient does not want to have testing done at this time. He states that he is already contacted his neurologist Dr. Zepeda, who is going to see him in outpatient setting for possible MS exacerbation. Patient vital signs are stable. Patient remains afebrile. Physical Exam Vital signs: Vital Signs 11/02/17 11:59 11/02/17 12:05 11/02/17 13:05 Temperature 98.1 F Pulse Rate 93 H 93 H 103 H Respiratory Rate 18 18 16 Blood Pressure 142/64 H 142/64 H 114/67 Pulse Oximetry 98 98 98 11/02/17 13:10 11/02/17 13:15 11/02/17 14:40 Temperature Pulse Rate 92 H 72 Respiratory Rate 16 18 16 Blood Pressure 101/61 96/59 L Pulse Oximetry 98 11/02/17 15:05 11/02/17 15:45 11/02/17 15:54 Temperature Pulse Rate 68 72 89 Respiratory Rate 16 18 16 Blood Pressure 116/69 102/65 116/81 Pulse Oximetry 99 97 11/02/17 17:21 11/02/17 20:00 11/02/17 20:57 Temperature 97.2 F L 97.1 F L Pulse Rate 72 70 Respiratory Rate 16 20 Blood Pressure 137/59 L 118/64 Pulse Oximetry 97 96 95 11/02/17 21:56 11/03/17 00:00 11/03/17 08:00 Temperature 97.2 F L 97.5 F L Pulse Rate 77 62 69 Respiratory Rate 20 20 Blood Pressure 101/56 L 123/75 Pulse Oximetry 97 97 Intake & Output 11/02/17 11/03/17 11/03/17 18:59 06:59 18:59 Weight 107 kg Other: # Voids 1 Date of Last Bowel Movement 11/02/17 Narrative: GENERAL: Well-developed, well-nourished, in no acute distress. alert and orientated HEENT: Head is normocephalic without any lesions or masses noted. Facial features are symmetric. Eyes: Extraocular muscles are intact. Conjunctivae were clear. NECK: Supple without any masses. Trachea midline no deviation. No JVD, CARDIAC: Regular rhythm, regular rate. S1/S2 are heard. No murmurs gallops or rubs. LUNGS: Clear to auscultation bilaterally. No wheeze, rhonchi or rales. No use of accessory muscles on inspiration or expiration. ABDOMEN: Soft, nontender. Nondistended. Bowel sounds heard in all 4 quadrants. No organomegaly or masses. Negative rebound, negative guarding EXTREMITIES: No edema, pulses are equal bilaterally. No cyanosis or clubbing NEUROLOGY: Mood and affect appear appropriate. Cranial nerves II through XII grossly intact. Moving all extremities with slight weakness in the left upper and left lower extremities which is baseline. , speech is clear Results - Labs CBC & Chem 7: 11/02/17 12:20 11/02/17 12:57 Laboratory Results - last 24 hr 11/02/17 11/02/17 11/02/17 12:20 12:57 12:57 CBC w Diff Auto diff final WBC 5.8 RBC 4.27 L Hgb 12.6 L Hct 37.8 L MCV 88.6 MCH 29.6 MCHC 33.4 RDW 12.6 Plt Count 258 MPV 8.3 Neut % (Auto) 53.4 Lymph % (Auto) 28.2 [place] % (Auto) 7.5 Eos % (Auto) 6.9 H Baso % (Auto) 4.0 H Neut # (Auto) 3.2 Lymph # (Auto) 1.6 [place] # (Auto) 0.4 Eos # (Auto) 0.4 Baso # (Auto) 0.2 WBC Differential . Differential Comment . PT 10.0 INR 1.0 APTT 26.9 Sodium 140 Potassium 3.8 Chloride 106 Carbon Dioxide 27.0 Anion Gap 7 BUN 9 Creatinine 0.78 Estimated GFR Greater than 89 Random Glucose 101 Calcium 8.1 L Total Bilirubin 0.4 AST 11 L ALT 22 Alkaline Phosphatase 38 L Total Creatine Kinase 77 Troponin I Less than 0.02 L Total Protein 6.6 Albumin 3.7 Lipase 77 11/02/17 11/02/17 16:10 18:30 CBC w Diff WBC RBC Hgb Hct MCV MCH MCHC RDW Plt Count MPV Neut % (Auto) Lymph % (Auto) [place] % (Auto) Eos % (Auto) Baso % (Auto) Neut # (Auto) Lymph # (Auto) [place] # (Auto) Eos # (Auto) Baso # (Auto) WBC Differential Differential Comment PT INR APTT Sodium Potassium Chloride Carbon Dioxide Anion Gap BUN Creatinine Estimated GFR Random Glucose Calcium Total Bilirubin AST ALT Alkaline Phosphatase Total Creatine Kinase 75 80 Troponin I Less than 0.02 L Less than 0.02 L Total Protein Albumin Lipase - Imaging Impressions Chest X-Ray 11/02/17 12:02 CONCLUSION: No active disease. Head CT 11/02/17 12:24 CONCLUSION: 1. Unremarkable examination. . - Procedures None Assessment and Plan - Plan Chest pain, atypical -Patient presented with chest pain radiating to his shoulder associated with numbness of the left upper extremity, nausea and diaphoresis. -Patient with risk factors include age, male -Patient has been ruled out for acute coronary event with serial cardiac enzymes that have remained negative -Serial EKGs were reviewed by myself and indicated sinus rhythm without any changes -Recommended performing myocardial perfusion study to rule out any underlying ischemia, patient is deferring any other testing to be done at this time. I did discuss with the patient that even though we ruled him out for acute cardiac injury or damage patient may still have underlying ischemia. Patient does understand and still does not want to pursue any further testing at this time -Continue aspirin and nitroglycerin as needed Multiple sclerosis with chronic pain, possible exacerbation -Patient has contacted his neurologist Dr. Zepeda who will see him in outpatient setting for further management -Home medications have been continued DVT prevention -Sequential compression devices -Subcutaneous heparin Discharge Planning: Discharge home in stable condition Activity: Ad compa. Diet: Regular diet Medication per medication reconciliation Follow-up with primary medical doctor in 1 week
[2017-11-03] MEDS ORDERED: Aspirin 325 MG Tablet PO SCH (09:00)
== END 2017-11-03 09:33 | disposition home or self-care (01) ==
LOC: PHED 11:51 → PHEDA 11:51 → PH3 15:50
PROVIDERS: ADMIT Hospitalist; ATTEND Hospitalist

== ENCOUNTER 2017-11-26 12:23 | Inpatient (IN) ==
--- NOTE | 2017-11-26 13:38 | ED ---
HPI General Chief complaint: Pain: Chronic Stated complaint: ms pain Time Seen by Provider: 11/26/17 12:54 Source: patient Mode of arrival: wheelchair Limitations: no limitations History of Present Illness HPI narrative: This 52-year-old male is complaining of pain all over. He has a history of multiple sclerosis and has had symptoms like this in the past which have been attributed to his multiple sclerosis. He has chronic pain for many years. He has been on oxycodone 30 mg every 6 hours for the last 10 years. The pain got worse about 2 days ago. He says it is from his chin to his toes. He has pain in his skin. He says his feet feel like they are and ice his hands are freezing cold. He has severe pain everywhere. He is on medication for MS but is not sure what it is. He gets an injection with Dr. Zepeda every 29 days. He says that in the past his exacerbations like this have been treated with intravenous steroids. He feels like he is a bit weaker than normal. Related Data Home Medications Medication Instructions Recorded Confirmed Percocet 10 mg PO QID 11/02/17 11/02/17 oxycodone 30 mg PO Q6H 11/02/17 11/26/17 terazosin 5 mg PO DAILY 11/02/17 11/26/17 Allergies Allergy/AdvReac Type Severity Reaction Status Date / Time Sulfa (Sulfonamide Allergy Severe RASH Verified 11/02/17 12:00 Antibiotics) Review of Systems ROS: all other systems reviewed are negative [facility] Medical History Medical History History of kidney stones (Acute) Multiple sclerosis (Acute) Surgical History Surgical History No history of previous surgery (Acute) Family History Family History Other Family history of cancer Social History Social History Substance History: No History of Abuse Second Hand Smoke Exposure: Yes Smoking Status: Current every day smoker Tobacco Type: E-Cigarettes How Often Do You Have a Drink Containing Alcohol: Never Recent Travel in [facility] within the Last 8 Weeks: No Recent Out of Country Travel within the Last 8 Weeks: No Immunization History Tetanus Immunization: <5 Years Exam Narrative Exam Narrative: GENERAL: Chronically ill-appearing male. Complaining of pain SKIN: Focused skin assessment warm/dry. HEAD: Atraumatic. Normocephalic. EYES: Pupils equal and round. No scleral icterus. No injection or drainage. ENT: No nasal bleeding or discharge. Mucous membranes pink and moist. NECK: Trachea midline. No JVD. CARDIOVASCULAR: Regular rate and rhythm. No murmur appreciated. RESPIRATORY: No accessory muscle use. Clear to auscultation. Breath sounds equal bilaterally. GASTROINTESTINAL: Abdomen soft, non-tender, nondistended. Hepatic and splenic margins not palpable. MUSCULOSKELETAL: No obvious deformities. No clubbing. No cyanosis. No edema. NEUROLOGICAL: Awake and alert.. There is a some tremor on the right side of the face. 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 He is barely able to lift his legs off the gurney PSYCHIATRIC: Appropriate mood and affect; insight and judgment normal. Course Initial Documented Vital Signs Temperature 97.6 F 11/26/17 12:35 Pulse Rate 99 H 11/26/17 12:35 Blood Pressure 167/70 H 11/26/17 12:35 Pulse Oximetry 98 11/26/17 12:35 Last Documented Vital Signs Temperature 97.6 F 11/26/17 12:47 Pulse Rate 99 H 11/26/17 12:47 Respiratory Rate 18 11/26/17 12:47 Blood Pressure 167/70 H 11/26/17 12:47 Pulse Oximetry 98 11/26/17 12:47 Medical Decision Making [facility] Narrative Medical decision making narrative: Patient is having an exacerbation of MS similar to previous exacerbations. He is having severe pain. In the past he has responded well to Solu-Medrol. Case discussed with Dr. Galeano and we will initiate gram of Solu-Medrol daily Medical Screen Exam Complete: Yes Emergency Medical Condition: Yes Differential Diagnosis Differential Diagnosis: Differential includes MS exacerbation intractable pain Lab Data Result diagrams: 11/26/17 13:10 11/26/17 13:10 Lab Results 11/26/17 Range/Units 13:10 Sodium 139 (136-145) meq/L Potassium 4.0 (3.5-5.1) meq/L Chloride 106 (98-107) meq/L Carbon Dioxide 26.2 (21.0-32.0) meq/L Anion Gap 7 (5-15) meq/L BUN 11 (7-18) mg/dL Creatinine 0.81 (0.60-1.30) mg/dL Estimated GFR Greater than 89 (>89) mL/min Random Glucose 101 (74-106) mg/dL Calcium 8.6 (8.5-10.1) mg/dL Total Bilirubin 0.5 (0.2-1.0) mg/dL AST 20 (15-37) U/L ALT 20 (12-78) U/L Alkaline Phosphatase 42 L (45-117) U/L Total Protein 7.1 (6.4-8.2) g/dL Albumin 3.8 (3.4-5.0) g/dL Discharge Plan Discharge Disposition Patient Disposition: 30 Still Patient Discharge Condition Condition: Fair Discharge Details Diagnosis: Multiple sclerosis exacerbation Physicians Team ED Provider: William Pack Primary Care Provider: Primary Care ShirleyiShakila Rxs /Orders / Referrals /Forms Prescriptions: No Action Percocet 10 mg PO QID RF: 0 oxycodone 30 mg PO Q6H RF: 0 terazosin 5 mg Capsule 5 mg PO DAILY RF: 0 Discharge Interventions Interventions: Vital Signs Last Done: 11/26/17 12:35 Status ED Status: With Doctor
[2017-11-26 13:42] LABS: Chloride 106 meq/L (98-107); Sodium 139 meq/L (136-145)
[2017-11-26 13:45] LABS: Albumin 3.8 g/dL (3.4-5.0); Calcium 8.6 mg/dL (8.5-10.1)
[2017-11-26 13:46] LABS: Anion Gap 7 meq/L (5-15); Blood Urea Nitrogen 11 mg/dL (7-18); Carbon Dioxide 26.2 meq/L (21.0-32.0); Glucose,Random 101 mg/dL (74-106)
[2017-11-26 13:49] LABS: Alanine Aminotransferase 20 U/L (12-78); Aspartate Aminotransferase 20 U/L (15-37); Glomerular Filtration Rate Greater Than 89 mL/min (>89)
[2017-11-26 13:50] LABS: Total Protein 7.1 g/dL (6.4-8.2)
[2017-11-26 13:51] LABS: Alkaline Phosphatase 42 U/L (45-117)
[2017-11-26] MEDS ORDERED: HYDROmorphone PF Inj 1 MG/50 ML BAG IV.SIG ONE (13:53)
[2017-11-26] MEDS ORDERED: MethylPREDNISolone Sod Succinate Inj 125 MG/2 ML Vial IV.PUSH ONE (13:59)
[2017-11-26 14:03] LABS: Baso # (Auto) 0.1 th/mm3 (0.0-0.2); Baso % (Auto) 1.3 % (0.0-2.0); Eos # (Auto) 0.4 th/mm3 (0.0-0.4); Eos % (Auto) 5.5 % (0.0-4.0); Hematocrit 39.8 % (39.0-51.0); Hemoglobin 13.2 gm/dL (13.0-17.0); Lymph # (Auto) 1.7 th/mm3 (1.0-4.8); Lymph % (Auto) 23.3 % (9.0-44.0); Mean Corpuscular HGB Conc 33.2 % (32.0-36.0); Mean Corpuscular Hemoglobin 30.2 pg (27.0-34.0); Mean Corpuscular Volume 91.2 fL (80.0-100.0); Mean Platelet Volume 8.7 fL (7.0-11.0); Mono # (Auto) 0.6 th/mm3 (0.0-0.9); Mono % (Auto) 7.9 % (0.0-8.0); Neut # (Auto) 4.3 th/mm3 (1.8-7.7); Platelet Count 242 th/mm3 (150-450); Red Blood Count 4.36 mil/mm3 (4.50-5.90); Red Cell Distribution Width 11.9 % (11.6-17.2); White Blood Count 7.2 th/mm3 (4.0-11.0)
[2017-11-26] MEDS ORDERED: MethylPREDNISolone Sod Suc Inj 500 MG in Sodium Chlor 0.9% Inj 100 ML IV.SIG ONE (14:14)
[2017-11-26] MEDS ORDERED: HYDROmorphone PF Inj 2 MG/ML Vial IV.PUSH ONE (14:15)
[2017-11-26] MEDS ORDERED: HYDROmorphone PF Inj 1 MG/ML Ampul IV.PUSH ONE (14:15)
[2017-11-26] MEDS ORDERED: DEXTROSE 5% IV.SIG ONE ×4 (15:00)
[2017-11-26] MEDS ORDERED: METHYLPREDNISOLONE SOD SUC IV.SIG ONE ×4 (15:00)
[2017-11-26] MEDS ORDERED: WATER IV.SIG ONE ×4 (15:00)
[2017-11-26] MEDS ORDERED: Acetaminophen 325 MG Tablet PO PRN (15:09)
--- NOTE | 2017-11-26 15:09 | P.HPIM ---
History of Present Illness Primary Care Physician: No Primary Care Physician Chief Complaint: genaralized bodyache History of Present Illness: patient is a 52 y/o male with history of MS who presented to ER with generalized bodyache. he's currently receiving treatment through an research study. he says that he missed a dose about five weeks ago but received a dose about ten days ago. he says that his body ache started two weeks ago and gradually got worse that he couldn't tolerate. he denies any vision changes, headache. he's being followed up by . Inpatient Certification: I certify that the inpatient services were ordered in accordance with Medicare regulations governing the order. This includes certification that hospital inpatient services are reasonable and necessary and in the case of services not specified as inpatient-only under 42 CFR 419.22(n), that they are appropriately provided as inpatient services in accordance to with the 2-midnight benchmark under 43 CFR 412.3(e) Estimated Total Length of Stay (Days): 3 Plans for Post Hospital Care: Not yet determined Review of Systems All other systems reviewed negative except as stated in HPI [facility] - History History Provided By: Patient - Medical History Medical History: Medical History (Last Reviewed 11/26/17 @ 15:07 by Isa Millan MD) History of kidney stones Multiple sclerosis - Surgical History Surgical History: Surgical History (Last Reviewed 11/26/17 @ 15:07 by Isa Millan MD) No history of previous surgery - Family History Family History: Family History (Last Reviewed 11/26/17 @ 15:07 by Isa Millan MD) Other Family history of cancer - Tobacco History Second Hand Smoke Exposure: Yes Tobacco Use In Past 30 Days: Yes Smoking Status: Current every day smoker Tobacco Type: E-Cigarettes - Alcohol History How Often Do You Have a Drink Containing Alcohol: Never - Substance Use History Substance History: No History of Abuse - Travel History Recent Travel in the [place] Within the Last 8 Weeks: No Recent Travel Out of the Country Within the Last 8 Weeks: No - Immunization History Tetanus Immunization: <5 Years Medications and Allergies Active Medications: Active Medications Methylprednisolone Sodium (Succinate 1,000 mg/ Dextrose) 266 mls @ 266 mls/hr IV.SIG ONCE ONE Stop: 11/26/17 15:59 Methylprednisolone Sodium Succinate (Solumedrol Inj) 1,000 mg IV.PUSH DAILY JONATHAN Non-Formulary Medication (Oxycodone) 30 mg PO Q6H [facility] Terazosin HCl (Hytrin) 5 mg PO DAILY [facility] Allergies Allergy/AdvReac Type Severity Reaction Status Date / Time Sulfa (Sulfonamide Allergy Severe RASH Verified 11/02/17 12:00 Antibiotics) Home Medications Medication Instructions Recorded Confirmed Type oxycodone 30 mg PO Q6H 11/02/17 11/26/17 History terazosin 5 mg PO DAILY 11/02/17 11/26/17 History Exam Vital signs: Vital Signs 11/26/17 12:35 11/26/17 12:47 11/26/17 14:22 Temperature 97.6 F 97.6 F Pulse Rate 99 H 99 H 77 Respiratory Rate 18 16 Blood Pressure 167/70 H 167/70 H 107/61 Pulse Oximetry 98 98 95 Intake & Output 11/25/17 11/26/17 11/26/17 18:59 06:59 18:59 Weight 102.1 kg - Constitutional no acute distress - Routine HEENT Exam Eye: Present: PERRL - Routine Neck Exam Present: supple - Routine Respiratory Exam Present: CTA bilaterally - Routine Cardiovascular Exam Present: RRR - Routine Abdominal Exam Present: soft - Routine Extremities Exam Comments: no pedal edema. - Routine Neurological Exam Present: alert, oriented X3 Results - Labs CBC & Chem 7: 11/26/17 13:10 11/26/17 13:10 Labs: Short CBC 11/26/17 Range/Units 13:10 WBC 7.2 (4.0-11.0) th/mm3 Hgb 13.2 (13.0-17.0) gm/dL Hct 39.8 (39.0-51.0) % Plt Count 242 (150-450) th/mm3 BMP 11/26/17 13:10 Sodium 139 Potassium 4.0 Chloride 106 Carbon Dioxide 26.2 BUN 11 Creatinine 0.81 Calcium 8.6 Liver Function 11/26/17 Range/Units 13:10 Total Bilirubin 0.5 (0.2-1.0) mg/dL AST 20 (15-37) U/L ALT 20 (12-78) U/L Alkaline Phosphatase 42 L (45-117) U/L Albumin 3.8 (3.4-5.0) g/dL Caprini VTE Risk Assessment Caprini VTE Risk Assessment: Moderate/High Risk (score >= 2) Caprini Risk Assessment Model: Point Value = 1 Point Value = 2 Point Value = 3 Point Value = 5 Age 41-60 Minor surgery BMI > 25 kg/m2 Swollen legs Varicose veins or History of unexplained or recurrent spontaneous Oral contraceptives or hormone replacement Sepsis (< 1 month) Serious lung disease, including pneumonia (< 1 month) Abnormal pulmonary function Acute myocardial infarction Congestive heart failure (< 1 month) History of inflammatory bowel disease Medical patient at bed rest Age 61-74 Arthroscopic surgery Major open surgery (> 45 min) Laparoscopic surgery (> 45 min) Malignancy Confined to bed (> 72 hours) Immobilizing plaster cast Central venous access Age >= 75 History of VTE Family history of VTE Factor V Leiden Prothrombin [id number] Lupus anticoagulant Anticardiolipin antibodies Elevated serum homocysteine Heparin-induced thrombocytopenia Other congenital or acquired thrombophilia Stroke (< 1 month) Elective arthroplasty Hip, pelvis, or leg fracture Acute spinal cord injury (< 1 month) Prophylaxis Regimen: Total Risk Factor Score Risk Level Prophylaxis Regimen 0-1 Low Early ambulation 2 Moderate Order ONE of the following: *Sequential Compression Device (SCD) *Heparin 5000 units SQ BID 3-4 Higher Order ONE of the following medications: *Heparin 5000 units SQ TID *Enoxaparin/Lovenox 40 mg SQ daily (WT < 150 kg, CrCl > 30 mL/min) *Enoxaparin/Lovenox 30 mg SQ daily (WT < 150 kg, CrCl > 10-29 mL/min) *Enoxaparin/Lovenox 30 mg SQ BID (WT < 150 kg, CrCl > 30 mL/min) AND/OR *Sequential Compression Device (SCD) 5 or more Highest Order ONE of the following medications: *Heparin 5000 units SQ TID (Preferred with Epidurals) *Enoxaparin/Lovenox 40 mg SQ daily (WT < 150 kg, CrCl > 30 mL/min) *Enoxaparin/Lovenox 30 mg SQ daily (WT < 150 kg, CrCl > 10-29 mL/min) *Enoxaparin/Lovenox 30 mg SQ BID (WT < 150 kg, CrCl > 30 mL/min) AND *Sequential Compression Device (SCD) Assessment and Plan - Plan A/P - MS exacerbation will strat on high dose IV steroid and consult neurology- continue with pain management. - consult PT -DVT prophylaxis with SCD's Discussed Condition With: ER physician and the patient.
[2017-11-26] MEDS: HYDROmorphone PF Inj 2 MG/ML Vial IV.PUSH PRN ×3 (15:24→23:58)
[2017-11-27] MEDS: HYDROmorphone PF Inj 2 MG/ML Vial IV.PUSH PRN ×5 (04:48→22:18)
--- NOTE | 2017-11-27 07:41 | P.CONNEU ---
History of Present Illness Service: Neurology Primary Care Provider: No Primary Care Physician Chief Complaint: genaralized bodyache History of Present Illness: 52-year-old male admitted for generalized pain. History of multiple sclerosis. Has leg spasms when he goes from sitting to standing which is been going on for years last about 10 seconds. Been on baclofen which did not help but made him sleepy. He takes oxycodone 4 times a day however it was not helping his pain is having a lot of stiffness pain in his distal hands and feet. This usually responds to IV steroids. He has declined MRI imaging Review of Systems All other systems reviewed negative except as stated in HPI [facility] - History History Provided By: Patient - Medical History Medical History: Medical History (Last Reviewed 11/27/17 @ 07:55 by Syeda Weinberg) History of kidney stones Multiple sclerosis - Surgical History Surgical History: Surgical History (Last Reviewed 11/27/17 @ 07:55 by Syeda Weinberg) No history of previous surgery - Family History Family History: Family History (Last Reviewed 11/26/17 @ 15:07 by Isa Millan MD) Other Family history of cancer - Tobacco History Second Hand Smoke Exposure: Yes Tobacco Use In Past 30 Days: Yes Smoking Status: Current every day smoker Tobacco Type: E-Cigarettes - Alcohol History How Often Do You Have a Drink Containing Alcohol: Never - Substance Use History Substance History: No History of Abuse - Travel History Recent Travel in the [place] Within the Last 8 Weeks: No Recent Travel Out of the Country Within the Last 8 Weeks: No - Immunization History Tetanus Immunization: <5 Years Hx Influenza Vaccine This Season: Yes Medications and Allergies Active Medications: Active Medications Acetaminophen (Tylenol) 650 mg PO Q4H PRN PRN Reason: fever Hydromorphone HCl (Dilaudid Pf Inj) 1 mg IV.PUSH Q4H PRN PRN Reason: breakthrough pain Last Admin: 11/27/17 04:48 Dose: 1 mg Methylprednisolone Sodium (Succinate 1,000 mg/ Dextrose) 266 mls @ 266 mls/hr IV.SIG DAILY@1500 JONATHAN Ondansetron HCl (Zofran Inj) 4 mg IV.PUSH Q8H PRN PRN Reason: nausea Oxycodone HCl (Roxicodone) 15 mg PO Q3HR JONATHAN Last Admin: 11/27/17 06:09 Dose: 15 mg Terazosin HCl (Hytrin) 5 mg PO DAILY JONATHAN Allergies Allergy/AdvReac Type Severity Reaction Status Date / Time Sulfa (Sulfonamide Allergy Severe RASH Verified 11/02/17 12:00 Antibiotics) Home Medications Medication Instructions Recorded Confirmed Type oxycodone 30 mg PO Q6H 11/02/17 11/26/17 History terazosin 5 mg PO DAILY 11/02/17 11/26/17 History Exam Vital signs: Vital Signs 11/26/17 12:35 11/26/17 12:47 11/26/17 14:22 Temperature 97.6 F 97.6 F Pulse Rate 99 H 99 H 77 Respiratory Rate 18 16 Blood Pressure 167/70 H 167/70 H 107/61 Pulse Oximetry 98 98 95 11/26/17 14:53 11/26/17 15:54 11/26/17 16:00 Temperature 96.6 F L Pulse Rate 72 Respiratory Rate 18 18 16 Blood Pressure 110/73 Pulse Oximetry 96 11/26/17 17:21 11/26/17 20:00 11/27/17 00:00 Temperature 97.8 F 96.2 F L Pulse Rate 75 84 Respiratory Rate 18 20 20 Blood Pressure 125/71 131/65 Pulse Oximetry 94 L 96 11/27/17 00:04 11/27/17 00:47 11/27/17 05:45 Temperature Pulse Rate Respiratory Rate 20 20 20 Blood Pressure Pulse Oximetry Intake & Output 11/26/17 11/27/17 11/27/17 18:59 06:59 18:59 Intake Total 746 / 746 480 / 480 Balance 746 / 746 480 / 480 Weight 102.1 kg 102.2 kg Intake: IV 266 / 266 SoluMEDROL Inj 1,000 MG In D5W 266 / 266 Inj 250 ML @ 266 mls/hr IV.SIG ONCE ONE Rx#:[id number] Oral 480 / 480 480 / 480 Other: # Voids 3 1 Date of Last Bowel Movement 11/26/17 11/26/17 # Bowel Movements 0 Weight On Admission 102.1 kg Narrative: GENERAL: in NAD, MUSCULOSKELETAL: Extremities without clubbing, cyanosis, or edema. No obvious deformities. NEUROLOGICAL: Awake and alert. No aphasia, fluent articulate, oriented x3, no facial asymmetry, OU 3-2mm, eomi, VFF, reduced fine finger movements mild stiffness, bilateral spasticity in the lower extremities, with distal leg weakness left greater than right on dorsiflexion left 3-4 out of 5, right foot 4 out of 5, wide-based spastic gait with cane PSYCHIATRIC: Appropriate mood and affect; insight and judgment normal. - Constitutional no acute distress - Routine HEENT Exam Head: Present: normocephalic Eye: Present: EOMI Results - Labs CBC & Chem 7: 11/26/17 13:10 11/26/17 13:10 Labs: Laboratory Results - last 24 hr 11/26/17 11/26/17 13:10 13:10 CBC w Diff Auto diff final WBC 7.2 RBC 4.36 L Hgb 13.2 Hct 39.8 MCV 91.2 MCH 30.2 MCHC 33.2 RDW 11.9 Plt Count 242 MPV 8.7 Neut % (Auto) 62.0 Lymph % (Auto) 23.3 [place] % (Auto) 7.9 Eos % (Auto) 5.5 H Baso % (Auto) 1.3 Neut # (Auto) 4.3 Lymph # (Auto) 1.7 [place] # (Auto) 0.6 Eos # (Auto) 0.4 Baso # (Auto) 0.1 WBC Differential . Differential Comment . Sodium 139 Potassium 4.0 Chloride 106 Carbon Dioxide 26.2 Anion Gap 7 BUN 11 Creatinine 0.81 Estimated GFR Greater than 89 Random Glucose 101 Calcium 8.6 Total Bilirubin 0.5 AST 20 ALT 20 Alkaline Phosphatase 42 L Total Protein 7.1 Albumin 3.8 Review/Management - Diagnosis (1) Multiple sclerosis Code(s): G35 - Multiple sclerosis Status: Acute Current Visit: Yes (2) Spasticity Code(s): R25.2 - Cramp and spasm Status: Acute Current Visit: Yes - Review/Management Plan: Reduce pain and stiffness in his hands and feet feeling better. He would like to try something for his leg spasms Recommendation complete 3-day course of IV steroids Trial of Valium for orthostatic myoclonus, tremors He can be discharged tomorrow after his third dose of IV steroids followed up in the outpatient setting and report to our research department and Dr. Zepeda
--- NOTE | 2017-11-27 10:04 | P.PNIM ---
Subjective Interval history: f/u; MS flare-up in no acute distress. looks and feels better today. body ache has improved. no new complaints. Physical Exam Vital signs: Vital Signs 11/26/17 12:35 11/26/17 12:47 11/26/17 14:22 Temperature 97.6 F 97.6 F Pulse Rate 99 H 99 H 77 Respiratory Rate 18 16 Blood Pressure 167/70 H 167/70 H 107/61 Pulse Oximetry 98 98 95 11/26/17 14:53 11/26/17 15:54 11/26/17 16:00 Temperature 96.6 F L Pulse Rate 72 Respiratory Rate 18 18 16 Blood Pressure 110/73 Pulse Oximetry 96 11/26/17 17:21 11/26/17 20:00 11/27/17 00:00 Temperature 97.8 F 96.2 F L Pulse Rate 75 84 Respiratory Rate 18 20 20 Blood Pressure 125/71 131/65 Pulse Oximetry 94 L 96 11/27/17 00:04 11/27/17 00:47 11/27/17 05:45 Temperature Pulse Rate Respiratory Rate 20 20 20 Blood Pressure Pulse Oximetry 11/27/17 08:00 Temperature 97.6 F Pulse Rate 90 Respiratory Rate 20 Blood Pressure 131/64 Pulse Oximetry 94 L Intake & Output 11/26/17 11/27/17 11/27/17 18:59 06:59 18:59 Intake Total 746 / 746 480 / 480 Balance 746 / 746 480 / 480 Weight 102.1 kg 102.2 kg Intake: IV 266 / 266 SoluMEDROL Inj 1,000 MG In D5W 266 / 266 Inj 250 ML @ 266 mls/hr IV.SIG ONCE ONE Rx#:[id number] Oral 480 / 480 480 / 480 Other: # Voids 3 1 Date of Last Bowel Movement 11/26/17 11/26/17 # Bowel Movements 0 Weight On Admission 102.1 kg - Constitutional no acute distress - Routine Respiratory Exam Present: CTA bilaterally - Routine Cardiovascular Exam Present: RRR - Routine Abdominal Exam Present: soft - Routine Extremities Exam Comments: no pedal edema. - Routine Neurological Exam Present: alert, oriented X3 Results - Labs CBC & Chem 7: 11/26/17 13:10 11/26/17 13:10 Laboratory Results - last 24 hr 11/26/17 11/26/17 13:10 13:10 CBC w Diff Auto diff final WBC 7.2 RBC 4.36 L Hgb 13.2 Hct 39.8 MCV 91.2 MCH 30.2 MCHC 33.2 RDW 11.9 Plt Count 242 MPV 8.7 Neut % (Auto) 62.0 Lymph % (Auto) 23.3 [place] % (Auto) 7.9 Eos % (Auto) 5.5 H Baso % (Auto) 1.3 Neut # (Auto) 4.3 Lymph # (Auto) 1.7 [place] # (Auto) 0.6 Eos # (Auto) 0.4 Baso # (Auto) 0.1 WBC Differential . Differential Comment . Sodium 139 Potassium 4.0 Chloride 106 Carbon Dioxide 26.2 Anion Gap 7 BUN 11 Creatinine 0.81 Estimated GFR Greater than 89 Random Glucose 101 Calcium 8.6 Total Bilirubin 0.5 AST 20 ALT 20 Alkaline Phosphatase 42 L Total Protein 7.1 Albumin 3.8 Assessment and Plan - Plan A/P - MS exacerbation- improving. continue high dose IV steroid and consulted neurology- continue with pain management. - consulted PT -DVT prophylaxis with SCD's Discharge Planning: when cleared by neurology.
[2017-11-27 10:39] LABS: Bilirubin,Urine Negative (Negative); Clarity,Urine Clear (Clear); Color,Urine Yellow (Yellw/Straw); Glucose,Urine (UA) 250 mg/dL (Negative); Leukocyte Esterase,Urine Negative (Negative); Nitrite,Urine Negative (Negative); PH,Urine 6.5 (5.0-8.5); Urobilinogen,Urine 0.2 mg/dL (Less than 2)
[2017-11-27 11:02] LABS: Mucus,Urine Occasional /lpf (Occasional); RBC,Urine 0-3 /hpf (0-3)
[2017-11-27] MEDS: DEXTROSE 5% IV.SIG SCH ×2 (14:10)
[2017-11-27] MEDS: METHYLPREDNISOLONE SOD SUC IV.SIG SCH ×2 (14:10)
[2017-11-27] MEDS: WATER IV.SIG SCH ×2 (14:10)
[2017-11-27] MEDS ORDERED: MethylPREDNISolone Sod Succinate Inj 125 MG/2 ML Vial IV.PUSH SCH (15:00)
[2017-11-27] MEDS: diazePAM 2 MG Tablet PO SCH (20:54)
[2017-11-28 00:07] VITALS: RESP 20
[2017-11-28] MEDS: HYDROmorphone PF Inj 2 MG/ML Vial IV.PUSH PRN ×3 (04:10→13:12)
--- NOTE | 2017-11-28 09:30 | P.PNIM ---
Subjective Interval history: f/u; MS exacerbation in no acute distress. says that he's feeling better today. wants to go home. d/w the RN. Physical Exam Vital signs: Vital Signs 11/27/17 12:00 11/27/17 17:07 11/27/17 20:00 Temperature 96.7 F L 97.3 F L 96.5 F L Pulse Rate 86 73 83 Respiratory Rate 20 20 20 Blood Pressure 115/66 142/64 H 122/63 Pulse Oximetry 95 97 95 11/27/17 23:06 11/28/17 00:00 Temperature 97.6 F Pulse Rate 80 Respiratory Rate 18 20 Blood Pressure 129/65 Pulse Oximetry 96 Intake & Output 11/27/17 11/28/17 11/28/17 18:59 06:59 18:59 Intake Total 1312 / 1312 600 / 600 Balance 1312 / 1312 600 / 600 Weight 102.5 kg Intake: IV 266 / 266 SoluMEDROL Inj 1,000 MG In D5W 266 / 266 Inj 250 ML @ 266 mls/hr IV.SIG DAILY@1500 JONATHAN Rx#:[id number] Oral 1046 / 1046 600 / 600 Other: # Voids 3 1 - Constitutional no acute distress - Routine Respiratory Exam Present: CTA bilaterally - Routine Cardiovascular Exam Present: RRR - Routine Abdominal Exam Present: soft - Routine Extremities Exam Comments: no pedal edema. - Routine Neurological Exam Present: alert, oriented X3 Results - Labs CBC & Chem 7: 11/26/17 13:10 11/26/17 13:10 Laboratory Results - last 24 hr 11/27/17 10:00 Ur Collection Type Clean catch Urine Color Yellow Urine Clarity Clear Urine pH 6.5 Ur Specific [place] 1.010 Urine Protein Negative Urine Glucose (UA) 250 H Urine Ketones Negative Urine Occult Blood Trace Urine Nitrate Negative Urine Bilirubin Negative Urine Urobilinogen 0.2 Ur Leukocyte Esterase Negative Urine RBC 0-3 Urine Mucus Occasional Micro UA Comment Culture not ind Ur Microscopic Review Microscopic reviewed Assessment and Plan - Plan A/P - MS exacerbation- improving. continue high dose IV steroid.- continue with pain management. neurology consult appreciated. - consulted PT -DVT prophylaxis with SCD's Discharge Planning: dc home this evening if stable and after seen by PT. see med list. f/u; pcp and neurology. d/w the patient and RN. Cordelia was consulted prior to discharge. previously d/w .
--- NOTE | 2017-11-28 09:35 | P.DS ---
Date of admission: 11/26/17 14:05 Primary care physician: No Primary Care Physician Brief History from admission: patient is a 52 y/o male with history of MS who presented to ER with generalized bodyache. he's currently receiving treatment through an research study. he says that he missed a dose about five weeks ago but received a dose about ten days ago. he says that his body ache started two weeks ago and gradually got worse that he couldn't tolerate. he denies any vision changes, headache. he's being followed up by . DS: Medications - Discharge Medications Prescriptions: diazepam [Valium] 2 mg PO Q12HR #6 tab DS: Summary Hospital Course: patient was admitted with MS exacerbation. he was placed on IV steroids with trial of Valium. he was evaluated by neurology. his condition improved. he will have a follow-up with his pcp and neurology upon discharge. - Time Spent with Patient Total time spent providing and/or coordinating discharge services: Less than 30 minutes - Quality: VTE Deep Vein Thrombosis/Pulmonary Embolism Present on Admission: No Exam Vital signs: Vital Signs 11/27/17 12:00 11/27/17 17:07 11/27/17 20:00 Temperature 96.7 F L 97.3 F L 96.5 F L Pulse Rate 86 73 83 Respiratory Rate 20 20 20 Blood Pressure 115/66 142/64 H 122/63 Pulse Oximetry 95 97 95 11/27/17 23:06 11/28/17 00:00 Temperature 97.6 F Pulse Rate 80 Respiratory Rate 18 20 Blood Pressure 129/65 Pulse Oximetry 96 Intake & Output 11/27/17 11/28/17 11/28/17 18:59 06:59 18:59 Intake Total 1312 / 1312 600 / 600 Balance 1312 / 1312 600 / 600 Weight 102.5 kg Intake: IV 266 / 266 SoluMEDROL Inj 1,000 MG In D5W 266 / 266 Inj 250 ML @ 266 mls/hr IV.SIG DAILY@1500 [facility] Rx#:[id number] Oral 1046 / 1046 600 / 600 Other: # Voids 3 1 Results Procedures completed during hospitalization: none. Labs on day of discharge: Labs from last 24 hours 11/27/17 10:00 Ur Collection Type Clean catch Urine Color Yellow Urine Clarity Clear Urine pH 6.5 Ur Specific [place] 1.010 Urine Protein Negative Urine Glucose (UA) 250 H Urine Ketones Negative Urine Occult Blood Trace Urine Nitrate Negative Urine Bilirubin Negative Urine Urobilinogen 0.2 Ur Leukocyte Esterase Negative Urine RBC 0-3 Urine Mucus Occasional Micro UA Comment Culture not ind Ur Microscopic Review Microscopic reviewed Discharge Plan - Discharge Disposition Patient Disposition: 01 Discharge Home - Discharge Condition Condition: Fair - Physicians Team Primary Care Provider: Primary Care Shakila Vivas Attending Provider: Isa Millan Other Providers: Randy Galeano MD
[2017-11-28] MEDS: diazePAM 2 MG Tablet PO SCH (10:47)
--- NOTE | 2017-11-28 13:53 | P.PNNEU ---
Subjective Subjective Comments: No cp, no dyspnea, no lanza, no vision loss. Feels his left side is much stronger less stiff pain is improved. He states the Versed has significantly helped spasms in his legs and body that he has been having for years Active Medications: Active Medications Acetaminophen (Tylenol) 650 mg PO Q4H PRN PRN Reason: fever Diazepam (Valium) 2 mg PO Q12HR [facility] Last Admin: 11/28/17 10:47 Dose: 2 mg Hydromorphone HCl (Dilaudid Pf Inj) 1 mg IV.PUSH Q4H PRN PRN Reason: breakthrough pain Last Admin: 11/28/17 13:12 Dose: 1 mg Methylprednisolone Sodium (Succinate 1,000 mg/ Dextrose) 266 mls @ 266 mls/hr IV.SIG DAILY@1500 [facility] Last Infusion: 11/27/17 15:50 Dose: Infused Ondansetron HCl (Zofran Inj) 4 mg IV.PUSH Q8H PRN PRN Reason: nausea Oxycodone HCl (Roxicodone) 15 mg PO Q3HR [facility] Last Admin: 11/28/17 11:53 Dose: 15 mg Terazosin HCl (Hytrin) 5 mg PO DAILY [facility] Last Admin: 11/28/17 09:20 Dose: 5 mg Allergies/Adverse Reactions: Allergies Allergy/AdvReac Type Severity Reaction Status Date / Time Sulfa (Sulfonamide Allergy Severe RASH Verified 11/02/17 12:00 Antibiotics) Review of Systems All other systems reviewed negative except as stated in HPI Physical Exam Vital signs: Vital Signs 11/27/17 17:07 11/27/17 20:00 11/27/17 23:06 Temperature 97.3 F L 96.5 F L Pulse Rate 73 83 Respiratory Rate 20 20 18 Blood Pressure 142/64 H 122/63 Pulse Oximetry 97 95 11/28/17 00:00 11/28/17 08:00 Temperature 97.6 F 97.2 F L Pulse Rate 80 82 Respiratory Rate 20 20 Blood Pressure 129/65 121/62 Pulse Oximetry 96 96 Intake & Output 11/27/17 11/28/17 11/28/17 18:59 06:59 18:59 Intake Total 1312 / 1312 600 / 600 Balance 1312 / 1312 600 / 600 Weight 102.5 kg Intake: IV 266 / 266 SoluMEDROL Inj 1,000 MG In D5W 266 / 266 Inj 250 ML @ 266 mls/hr IV.SIG DAILY@1500 JONATHAN Rx#:[id number] Oral 1046 / 1046 600 / 600 Other: # Voids 3 1 Narrative: GENERAL: in NAD, MUSCULOSKELETAL: Extremities without clubbing, cyanosis, or edema. No obvious deformities. NEUROLOGICAL: Awake and alert. No aphasia, fluent articulate, oriented x3, no facial asymmetry, OU 3-2mm, eomi, VFF, reduced fine finger movements mild stiffness, bilateral spasticity in the lower extremities, with distal leg weakness left greater than right on dorsiflexion left 3-4 out of 5, right foot 4 out of 5, wide-based spastic gait with cane PSYCHIATRIC: Appropriate mood and affect; insight and judgment normal. - Constitutional no acute distress - Routine HEENT Exam Head: Present: normocephalic Eye: Present: EOMI Review/Management - Diagnosis (1) Multiple sclerosis Code(s): G35 - Multiple sclerosis Status: Acute Current Visit: Yes (2) Spasticity Code(s): R25.2 - Cramp and spasm Status: Acute Current Visit: Yes - Review/Management Plan: Reduce pain and stiffness in his hands and feet feeling better. Possible mild MS exacerbation Recommendation Neurologically doing well complete 3-day course of IV steroids Valium for orthostatic myoclonus, tremors, spasms He can be discharged today after his third dose of IV steroids followed up in the outpatient setting and report to our research department and Dr. Zepeda
[2017-11-28] MEDS: DEXTROSE 5% IV.SIG SCH ×2 (14:03)
[2017-11-28] MEDS: METHYLPREDNISOLONE SOD SUC IV.SIG SCH ×2 (14:03)
[2017-11-28] MEDS: WATER IV.SIG SCH ×2 (14:03)
[2017-11-28 16:18] VITALS: BP 114/63; PULSE 69; TEMP 96.4; O2SAT 97
== END 2017-11-28 17:32 | disposition home or self-care (01) ==
LOC: PHED 12:23 → PHEDA 14:05 → PH3 14:50
PROVIDERS: ADMIT Internal Medicine; ATTEND Internal Medicine